=== PATIENT | male | born 1935 | race Caucasian/White ===

== ENCOUNTER 2023-06-04 23:20 | Inpatient (IN) | payer MEDICARE, OTHER, SELFPAY ==
[2023-06-04 18:51] VITALS: BP 182/86
[2023-06-04 21:49] VITALS: BP 149/73
[2023-06-04 22:07] LABS: % Basophils 0.5 % (0-2); % Eosinophils 0.4 % (0-6); % Immature Granulocytes 0.7 % (0-0.5); % Lymphocytes 5.6 % (20.5-51.1); % Neutrophils 86.8 % (42.2-75.2); Absolute Basophils 0.1 10^3/uL (0-0.2); Absolute Eosinophils 0.1 10^3/uL (0-0.7); Absolute Immature Granulocytes 0.1 10^3/uL (0-0.05); Absolute Lymphocytes 1.1 10^3/uL (1.2-3.4); Absolute Monocytes 1.2 10^3/uL (0.1-0.6); Absolute Neutrophils 16.5 10^3/uL (1.4-6.5); Hematocrit 34.1 % (39.0-52.0); Hemoglobin 11.2 g/dL (13.0-18.0); Mean Corp Hgb Conc. 32.8 g/dL (33.0-37.0); Mean Corpuscular Hgb 29.7 pg (27.0-31.0); Mean Corpuscular Volume 90.5 fL (80.0-94.0); Mean Platelet Volume 9.1 fL (7.4-10.4); Nucleated Red Blood Cells % 0 % (-); Platelet Count 200 10^3/uL (130-400); Red Blood Cell Count 3.77 10^6/uL (4.70-6.10); Red Cell Dist. Width 14.5 % (11.5-14.5); White Blood Cell Count 19.1 10^3/uL (4.8-10.8)
[2023-06-04 22:17] LABS: ALT (SGPT) 16 U/L (0-50); AST (SGOT) 24 U/L (17-59); Alkaline Phosphatase 105 U/L (38-126); Blood Urea Nitrogen 26 mg/dl (9-20); Calcium 9.8 mg/dl (8.4-10.2); Carbon Dioxide 21 mmol/L (22-30); Chloride 103 mmol/L (98-107); Glucose 121 mg/dl (70-99); Potassium 4.3 mmol/L (3.5-5.1); Sodium 134 mmol/L (135-145); Total Bilirubin 0.6 mg/dl (0.2-1.3); Total Protein 6.9 g/dl (6.3-8.2); eGFR 58.89
[2023-06-04] MEDS: DILAUDID 0.5 MG IV (22:17)
--- NOTE | 2023-06-04 22:44 | ED.MUSCINJ ---
HPI-Injury
General
Chief Complaint: Fall
Source: patient
Exam Limitations: none
Time Seen by Provider: 06/04/23 20:34
Travel History
Have you had any contact with someone who has COVID-19?: Unable to Answer
Do you have any symptoms of coronavirus? Fever > 100 degrees, chills, cough, shortness of breath, sore throat, loss of taste or smell, muscle aches, or headache?: Unable to Answer
History of Present Illness-Injury
Initial Injury comments:
87-year-old male presents from [facility] after an unwitnessed fall. He has a history of dementia. He was complaining of left hip pain. No other history obtained from the patient given his dementia.
Past History
Past History
ED Past Medical History: Cancer (Prostate), GERD (hiatal hernia), Hypercholesterolemia and Other (OA, vertigo)
ED Past Surgical History: Urological
Social History
Tobacco: Former smoker
Alcohol: None
Drug: None
Personal:
Living: with family
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
Family History
Family History: Other (Dad with a brain aneurysm)
Phy Exam
Physical Exam
Physical Exam:
General: Well-appearing male no acute respiratory distress
HEENT: Normocephalic neck is supple no scalp abrasion or hematoma
Heart: Regular rate and rhythm no murmurs
Lungs: Clear no wheezing or rales
Musculoskeletal exam: No significant deformity to the left leg however passive internal/external rotation of the hip does reproduce hip pain. Spine is nontender. Good range of motion right leg.
Neurologic: No facial asymmetry. Good muscle tone.
Extremities: No cyanosis
Injury Course
Orders/Labs/Results
Orders:
Orders
06/04/23 19:02
CT Head W/o Iv Contrast Urgent
Comment:
Reason For Exam: fall
Hip, Left 2-3 Views [CR Hip - LT w/wo Pel 2-3 Vw*] Urgent
Comment:
Reason For Exam: fall
Include a pelvis x-ray?: Yes
06/04/23 21:48
Complete Blood Count/With Diff Urgent
Comprehensive Metabolic Panel Urgent
06/04/23 21:52
HYDROmorphone [Dilaudid] 0.5 mg IV NOW STA
Abnormal Lab Results
06/04/23
21:48
WBC 19.1 H 10^3/uL
(4.8-10.8)
RBC 3.77 L 10^6/uL
(4.70-6.10)
Hgb 11.2 L g/dL
(13.0-18.0)
Hct 34.1 L %
(39.0-52.0)
MCHC 32.8 L g/dL
(33.0-37.0)
Abs Immat Gran (auto) 0.1 H 10^3/uL
(0-0.05)
Absolute Neuts (auto) 16.5 H 10^3/uL
(1.4-6.5)
Absolute Lymphs (auto) 1.1 L 10^3/uL
(1.2-3.4)
Absolute Monos (auto) 1.2 H 10^3/uL
(0.1-0.6)
Immature Gran % 0.7 H %
(0-0.5)
Neutrophils % 86.8 H %
(42.2-75.2)
Lymphocytes % 5.6 L %
(20.5-51.1)
Sodium 134 L mmol/L
(135-145)
Carbon Dioxide 21 L mmol/L
(22-30)
BUN 26 H mg/dl
(9-20)
Glucose 121 H mg/dl
(70-99)
06/04/23 21:48
06/04/23 21:48
MDM/Problems Addressed
Differential Diagnosis Includes:
Unwitnessed fall left hip pain. Consider fracture versus contusion. Will order CT of head and x-ray of left hip.
*Critical Care Note
Total Time (30-74mins, 75-104mins- exclusive of procedures): Not Applicable
Update Note
Update Note:
I personally visualized x-rays of the left hip and CT of the head. There is severe volume loss in the brain consistent with history of dementia. There is a acute nondisplaced basicervical fracture of the left femur. Will admit to hospital for hip
fracture. Hospitalist and orthopedics made aware
ED Attending Note
-
Portions of this chart may have been created with voice recognition software.� Occasional wrong word or��sound alike� substitutions may have occurred due to the inherent limitations of voice recognition software.
Discharge Plan
Departure
Patient Disposition: Admit
Date of Disposition: 06/04/23
Time of Disposition: 22:47
Admit to: Telemetry
Presentation/result/management discussed w/ accepting MD/DO: Hospitalist
Discharge Problem:
Closed left hip fracture
Prescriptions:
No Action
trazodone 50 MG tablet
50 mg PO HS
donepezil 10 mg Tablet
10 mg PO HS
amlodipine 5 mg Tablet
5 mg PO DAILY Qty: 30 0RF
sennosides-docusate sodium [Senna-S] 8.6-50 mg Tablet
2 tab-cap PO HS
simvastatin 10 mg Tablet
10 mg PO HS
tramadol 50 mg Tablet
25 mg PO DAILY
omeprazole 10 mg Capsule,Delayed Release(Dr/Ec)
10 mg PO DAILY@0630
magnesium hydroxide [Milk of Magnesia] 400 mg/5 mL Suspension
30 ml PO HS PRN (Reason: constipation)
tamsulosin 0.4 mg Capsule
0.4 mg PO QPM
bisacodyl [Dulcolax (bisacodyl)] 10 mg Suppository
10 mg MA DAILY PRN (Reason: q 3 days when no bm & mom is ineffective)
Fleet Enema 19-7 gram/118 mL Enema
118 ml MA DAILY PRN (Reason: if dulcolax is ineffective)
levocetirizine 5 mg Tablet
5 mg PO HS
cholecalciferol (vitamin D3) 250 mcg (10,000 unit) Tablet
250 mcg PO QWEEK
Patient Comments:
06/04/2023: Friday
acetaminophen 325 mg tablet
650 mg PO Q4H PRN (Reason: mild pain/fever>100.4)
lidocaine [Aspercreme (lidocaine)] 4 % adhesive patch,medicated
1 patch topical DAILY
Patient Comments:
06/04/2023: apply to left mid back, remove at 1900
tramadol 50 mg tablet
25 mg PO Q6HPRN PRN (Reason: moderate pain)
Referrals:
Fuentes Mello MD [Family Provider] -
Interventions
Interventions:
*Risk Screen - Suicide Last Done: 06/04/23 18:51
*General Assessment Last Done: 06/04/23 18:51
*Neglect/Abuse Screening Last Done: 06/04/23 18:51
ED- Fall Risk Assessment Last Done: 06/04/23 19:49
*ED COVID-19 Vaccine History Last Done: 06/04/23 18:51
ED-Musculoskeletal Assessment Last Done: 06/04/23 19:47
ED- Neurological Assessment Last Done: 06/04/23 19:47
Discharge Date and Time
Print Language: VENEZUELAN
--- NOTE | 2023-06-04 23:23 | HPS.HSE ---
Family Physician
-
Family Physician: Fuentes Mello
Chief Complaint
-
right rib fractures
History of Present Illness
87-year-old male with past medical history of dementia, hypertension, osteoarthritis, GERD, history of frequent falls with prior right rib fractures presenting from [facility] after unwitnessed fall. He was complaining of left hip pain.
Patient unable to provide much more history. He was able to state his name and birthday only.
Medical History
Past Medical History
Past Medical History: Reports Other (dementia, hypertension, osteoarthritis, GERD, history of frequent falls with prior right rib fractures )
Past Surgical History: Reports None
Social History
Tobacco: Non-smoker
Alcohol: None
Drug: None
Family History
Family History: Not pertinent
Allergies / Home Medications
Allergies reflects when Allergies were last updated in [facility].
Home Medications with original date entered in [facility]
Allergy/Medication List:
Allergies
Allergy/AdvReac Type Severity Reaction Status Date / Time
No Known Allergies Allergy Verified 03/17/20 14:15
Home Medications
trazodone 50 mg tablet 50 mg PO HS Depression 06/24/17
donepezil 10 mg tablet 10 mg PO HS COGNATIVE 03/27/22
amlodipine 5 mg tablet 5 mg PO DAILY #30 tabs 04/03/22
acetaminophen 325 mg tablet 650 mg PO Q4H PRN mild pain/fever>100.4 06/04/23
bisacodyl 10 mg rectal suppository (Dulcolax (bisacodyl)) 10 mg CO DAILY PRN q 3 days when no bm & mom is ineffective 06/04/23
cholecalciferol (vitamin D3) 250 mcg (10,000 unit) tablet 250 mcg PO QWEEK 06/04/23
levocetirizine 5 mg tablet 5 mg PO HS 06/04/23
lidocaine 4 % topical patch (Aspercreme (lidocaine)) 1 patch topical DAILY 06/04/23
magnesium hydroxide 400 mg/5 mL oral suspension (Milk of Magnesia) 30 ml PO HS PRN constipation 06/04/23
omeprazole 10 mg capsule,delayed release 10 mg PO DAILY@0630 06/04/23
sennosides 8.6 mg-docusate sodium 50 mg tablet (Senna-S) 2 tab-cap PO HS 06/04/23
simvastatin 10 mg tablet 10 mg PO HS 06/04/23
sodium phosphates 19 gram-7 gram/118 mL enema (Fleet Enema) 118 ml CO DAILY PRN if dulcolax is ineffective 06/04/23
tamsulosin 0.4 mg capsule 0.4 mg PO QPM 06/04/23
tramadol 50 mg tablet 25 mg PO DAILY 06/04/23
tramadol 50 mg tablet 25 mg PO Q6HPRN PRN moderate pain 06/04/23
Review of Systems
-
History Source: Patient
A 12 point ROS was completed and negative except as noted: Yes
Constitutional: Reports No Symptoms
EENT: Reports No Symptoms
Respiratory: Reports No Symptoms
Cardiac: Reports No Symptoms
Abdomen/GI: Reports No Symptoms
: Reports No Symptoms
Musculoskeletal: Reports No Symptoms
Skin: Reports No Symptoms
Neurological: Reports No Symptoms
Endocrine: Reports No Symptoms
Hematologic/Lymphatic: Reports No Symptoms
Psych: Reports No Symptoms
Physical Exam
Vital Signs
Vital Signs
Temp Pulse Resp BP Pulse Ox
97.8 F 98 24 149/73 94
06/04/23 18:51 06/04/23 23:11 06/04/23 18:51 06/04/23 21:49 06/04/23 23:11
Physical Exam
General: Well Developed, Well Nourished and No Apparent Distress
HEENT: NormoCephalic, Moist mucous membranes and Atraumatic
Respiratory: Clear
Cardiac: S1/S2 and Regular Rhythm; No Murmur or Rub
GI: Soft, Non Tender, Non Distended and Normal Bowel Sounds; No Organomegaly
Rectal: Deferred by Provider
Musculoskeletal: No Clubbing, No Cyanosis and No Edema
Skin: No Rash
Neuro: Nonfocal/grossly intact
Laboratory Results
-
06/04/23 21:48
06/04/23 21:48
Laboratory Results
Total Bilirubin 0.6 mg/dl (0.2-1.3) 06/04/23 21:48
AST 24 U/L (17-59) 06/04/23 21:48
ALT 16 U/L (0-50) 06/04/23 21:48
Alkaline Phosphatase 105 U/L (38-126) 06/04/23 21:48
Data Reviewed
-
Lab Data: Labs Reviewed by me
Old Records: Reviewed
Impression/Plan
-
IMPRESSION:
PLAN:
# Acute nondisplaced basicervical fracture of the left femoral neck
-CT head shows no acute hemorrhage or hematoma
-N.p.o. past midnight
-Ortho consulted
-Tylenol, tramadol for pain
-Minimize further narcotics due to dementia history
-Patient without any cardiac history, although functional status unknown, RCRI risk of 3.9%
#Leukocytosis
-Possible metabolic encephalopathy
-Chronic, and likely reactive
-Check urinalysis
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
-Will need to start aspirin after surgery
Osteoarthritis
-Continue tramadol
History of frequent falls with prior right rib fractures
Dementia
-Continue donepezil
Anxiety/depression
-Hold trazodone for now
GERD
-Continue omeprazole
Essential hypertension
-Continue amlodipine
Hyperlipidemia
Chronic anemia
-Hemoglobin stable
BPH
-Continue tamsulosin
DNR/DNI
DVT prophylaxis�SCDs
N.p.o. past midnight
[2023-06-05] VITALS (19 sets, daily range): BP systolic 96–160; BP diastolic 43–82; BMI 24.5
--- NOTE | 2023-06-05 01:39 | EDRN ---
This RN entered the room to get vital signs on this patient when he started to vomit. Patient turned on his side. Oxygen dropped in the high 60s. Non rebreather applied. Tressa MICHAELS at bedside to assess. Patient not tolerating and pulling the
non rebreather off.
--- NOTE | 2023-06-05 01:58 | RESPNOTE ---
called to bedside, to NTS suction a patient that was thought to have aspirated. pt placed on NRBM to hyperoxygenate, lubed suction cath passed easily through left nare, small amount of watery secretions obtained. Pt remains on 15 lpm NRBM saturation
94%
[2023-06-05] MEDS: ZOFRAN 4 MG IV (02:05)
[2023-06-05] MEDS: MORPHINE SULFATE 2 MG IV (02:06)
[2023-06-05] MEDS: TRANSDERM-SCOP 1 PATCH TRANSDERM (02:10)
[2023-06-05] MEDS: DUONEB 3 ML INH ×2 (02:57→20:34)
--- NOTE | 2023-06-05 03:57 | W.PN.UPDATE ---
Addendum entered and electronically signed by BRANDO Kearns 06/05/23 06:39:
Procal neg, BNP 3260. Lasix IV given. Attempted to update daughter but 'call could not be completed as dialed' x2. He is maintaining on 6 L NC 90-94%.
Addendum entered and electronically signed by BRANDO Kearns 06/05/23 05:56:
Zosyn IV added. Respiratory therapist consulted for possible mid flow/high flow. Procalcitonin and BNP added to labs. He has spiked temp to 102F. Rectal tylenol given.
Original Note:
Update Note
Progress Note Update
Called to patient room after he vomited in semi pollock's position in bed. Nursing immediately turned him on his side. Suctioned well by myself and respiratory therapist. Morphine for tachypnea given. NRB placed. Nebulizer given. CXR and ABG ordered.
Will transfer to IMU when bed available. He is DNR.
[2023-06-05 04:16] LABS: B.E. -2.7 mmol/L; HCO3 21.8 mmol/L (21-28); PCO2 36 mmHg (35-48); pH 7.39 (7.35-7.45)
[2023-06-05 04:17] LABS: PO2 57 mmHg (83-108)
[2023-06-05] MEDS: ZOSYN 50 IV ×3 (05:19→17:24)
[2023-06-05 05:21] LABS: % Basophils 0.3 % (0-2); % Eosinophils 0.3 % (0-6); % Immature Granulocytes 0.9 % (0-0.5); % Lymphocytes 2.1 % (20.5-51.1); % Monocytes 4.9 % (1.7-9.3); % Neutrophils 91.5 % (42.2-75.2); Absolute Basophils 0.1 10^3/uL (0-0.2); Absolute Eosinophils 0.1 10^3/uL (0-0.7); Absolute Immature Granulocytes 0.2 10^3/uL (0-0.05); Absolute Lymphocytes 0.5 10^3/uL (1.2-3.4); Absolute Monocytes 1.1 10^3/uL (0.1-0.6); Absolute Neutrophils 21.1 10^3/uL (1.4-6.5); Hematocrit 35.4 % (39.0-52.0); Hemoglobin 11.7 g/dL (13.0-18.0); Mean Corp Hgb Conc. 33.1 g/dL (33.0-37.0); Mean Corpuscular Hgb 29.5 pg (27.0-31.0); Mean Corpuscular Volume 89.4 fL (80.0-94.0); Mean Platelet Volume 8.5 fL (7.4-10.4); Nucleated Red Blood Cells % 0 % (-); Platelet Count 195 10^3/uL (130-400); Red Blood Cell Count 3.96 10^6/uL (4.70-6.10); Red Cell Dist. Width 14.5 % (11.5-14.5); White Blood Cell Count 23.1 10^3/uL (4.8-10.8)
[2023-06-05] MEDS: TYLENOL/FEVERALL 650 MG RECTAL (05:26)
[2023-06-05 05:48] LABS: ALT (SGPT) 20 U/L (0-50); AST (SGOT) 31 U/L (17-59); Albumin 4.2 g/dl (3.5-5.0); Alkaline Phosphatase 87 U/L (38-126); Blood Urea Nitrogen 29 mg/dl (9-20); Carbon Dioxide 22 mmol/L (22-30); Chloride 102 mmol/L (98-107); Estimated Creatinine Clearance 45 ml/min; Glucose 140 mg/dl (70-99); Potassium 5.1 mmol/L (3.5-5.1); Sodium 138 mmol/L (135-145); Total Bilirubin 1.2 mg/dl (0.2-1.3); Total Protein 7.1 g/dl (6.3-8.2)
--- NOTE | 2023-06-05 05:52 | PTCARENOTE ---
pt is lethargic but oriented to self. CHICKEN RANCH w/ occasional hand tremors. pt has crackles right base, and coarse diminished lung sounds throughout. he is on 6L SpO2=97%. pt left leg shorter then right. weak pedal pulses. pt had a temp of 102- rectal
tylenol administered. is placed on bed alarm.
[2023-06-05 05:53] LABS: Procalcitonin 0.11 ng/ml (0.0-0.25)
[2023-06-05 05:55] LABS: NT-proBNP 3260 pg/ml
[2023-06-05] MEDS: LASIX 40 MG IV (06:42)
--- NOTE | 2023-06-05 07:20 | W.PN.UPDATE ---
Update Note
Progress Note Update
With L Hip Fx
Spoke with daughter who desires surgery for her dad
For surgery later today
GGMD
[2023-06-05] MEDS: ULTRAM PO (08:03)
--- NOTE | 2023-06-05 08:15 | W.PN.HOSP.TC ---
Today's Communication/Plan
-
IV antibiotics. IVF. Trend lactate.
Assessment / Plan
Assessment / Plan
Physical exam:
General: Acutely ill. Toxic appearance
HEENT: Normocephalic, Atraumatic and Moist Mucous Membranes
Respiratory: Right-sided crackles; Negative Wheezes, Rales or Rhonchi
Cardiac: Regular Rhythm and S1/S2
GI: Soft, Nontender and Nondistended
Musculoskeletal: No Clubbing, No Cyanosis and some Edema
Neuro: Awake, Alert and Disoriented
Psych: Calm
A/P:
# Acute nondisplaced basicervical fracture of the left femoral neck
-Orthopedic consulted
-Stat twelve-lead EKG
-Obtain echocardiogram
-Discussed with Ortho and from medical standpoint he is not medically clear for surgery given his current infection and hypoxia (at least from my perspective).
-I updated daughter over the phone as well today.
-Discussed with RN
#Sepsis due to likely aspiration pneumonia
-WBC trending down to 23,000 today
-Stat blood cultures
-Stat lactic acid
-Stat CRP
-Shortly after orders CRP came back 57.6, procalcitonin 1.3, lactate 3.3
-IV antibiotics, Zosyn
-Start IV fluids
#Acute hypoxic respiratory failure. Probably underlying COPD
-Still requires significant amount of oxygen flow down from high flow oxygen to 6 lt of oxygen
-Oxygen supplementation
-Monitor respiratory status
-Seen and reviewed chest x-ray and interpreted by myself consistent with right-sided pneumonia, likely aspiration. Radiology report not available yet.
-Will have speech therapy to evaluate but for now keep him n.p.o.
-Hold off on steroids since no bronchospasm
-Pulmonary consult
#Leukocytosis
-Related to pneumonia
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
-Will need to start aspirin after surgery
Osteoarthritis
-Continue tramadol
History of frequent falls with prior right rib fractures
Dementia
-Continue donepezil
Anxiety/depression
-Hold trazodone for now
GERD
-Continue omeprazole
Essential hypertension
-Continue amlodipine
Hyperlipidemia
Chronic anemia
-Hemoglobin stable
BPH
-Continue tamsulosin
DNR/DNI
DVT prophylaxis�SCDs
Total Critical Care Time 40 minutes. I was immediately available to the patient and staff. I personally examined, reviewed labs, diagnostic images/reports, interpretations, treatment plans, discussed patient care with other providers and family
or caregivers (if patient is unable to make decisions), entered orders as appropriate and documented the medical record.
Anticipated Discharge: > 48 hours
Subjective/Interval History
-
Date of Service: June 05, 2023
Patient hypoxic on 6 L of oxygen. Looks frail.
Objective Data
-
Labs:
Laboratory Results
06/04/23 06/05/23 06/05/23
21:48 04:08 05:08
WBC 19.1 H 23.1 H
Hgb 11.2 L 11.7 L
Hct 34.1 L 35.4 L
Plt Count 200 195
HCO3 21.8
Sodium 134 L 138
Potassium 4.3 5.1
Chloride 103 102
Carbon Dioxide 21 L 22
BUN 26 H 29 H
Creatinine 1.2 1.3
Glucose 121 H 140 H
Calcium 9.8 10.0
Total Bilirubin 0.6 1.2
AST 24 31
ALT 16 20
Alkaline Phosphatase 105 87
Vital Signs:
Vital Signs
Temp Pulse Resp BP Pulse Ox
101.5 F H 87 35 125/69 97
06/05/23 07:23 06/05/23 06:42 06/05/23 05:45 06/05/23 06:42 06/05/23 05:45
I&O
06/04/23 06/05/23 06/06/23
06:59 06:59 06:59
Intake Total 70 / 70
Balance 70 / 70
[2023-06-05] MEDS: ANCEF 10 IV (09:25)
[2023-06-05] MEDS: LIDOCAINE 4% PATCH 1 PATCH TOPICAL (09:25)
--- NOTE | 2023-06-05 09:35 | CM ---
Patient from [facility] with Hx dementia with Dx unwitnessed fall, fracture left hip. Plan OR today.
Spoke with Rickey Sigala, [facility]; the patient was in LTC and on a SD bed hold.
[facility]; the patient resides in their secure memory care unit.
He is A/O x1 with very short memory span, poor safety awareness, impulsive & agitated at times.
The patient is assisted with ADLs, ambulatory using RW & assist of 1. He is considered a high fall risk.
The patient requires setup for feeding and is on a pureed dysphagia diet.
He was not on O2.
He was not receiving PT/OT.
Plan contact patient's daughter prior to discharge.
Plan return to [facility] when medically ready.
--- NOTE | 2023-06-05 10:16 | CON.PUL ---
Addendum entered and electronically signed by Yogi Teran MD 06/05/23 15:18:
Of note, daughter says patient has a history of COPD but is unclear how he was diagnosed. 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 He does not take any inhalers at baseline.
Original Note:
Consultation
Consultation Request
Date/Time Consultation Requested: 06/05/2023839
Date/Time Consultation Performed: 06/05/2023 - 1001
Requesting Provider: Dr. Rao
Performing Provider: Dr. Teran
Reason for Consultation: Preop clearance/acute hypoxia
Medical History
-
Chief Complaint: Fall
History of Present Illness:
87-year-old male with a past medical history of prostate cancer s/p radiation seeds placed, hiatal hernia, GERD, carotid artery disease, chronic sinusitis, and ?COPD who presents from [facility] with a fall. Apparently he fell from standing
position and fell onto his buttocks without loss of consciousness. Initial vitals showed BP 182/86, SpO2 97% on room air, pulse rate 76, respiratory rate 24 and afebrile 97.8 �F. Labs showed leukocytosis to 19.1, anemia to 11.2, mild hyponatremia
134, metabolic acidosis 21, elevated BUN to 26, and urinalysis was negative for signs of UTI. Head CT performed showing no acute intracranial hemorrhage or scalp soft tissue hematoma, and left hip XR showed acute nondisplaced left femoral neck
fracture. Patient given pain medications in the ER with Dilaudid 0.5 mg IVP x1. 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 Zosyn was started and blood cultures x2 were collected. He also had new oxygen requirements and initially
required nonrebreather at 15 L/min which was weaned down to 6 L/min nasal cannula. Orthopedic surgery is planning for surgery and now pulmonary consulted for preoperative clearance as well as additional management/recommendations.
When I saw the patient he was in bed, daughter at bedside and he was on room air breathing comfortably with SpO2 94%. Due to his dementia he is relatively nonverbal, he is able to say his name at baseline but he has been progressively declining as
per daughter. He is currently not in any respiratory distress. Unable to get any additional history from him given his clinical status with dementia.
PMHx: GERD, history of prostate cancer, vertigo, history of colonic polyps, hiatal hernia, hyperlipidemia, chronic sinusitis, ?COPD, Alzheimer's disease, seasonal allergies, carotid artery disease
PSHx: Fundoplasty, hernia repair, interlaminar epidural steroid injections, bilateral knee scopes, prostate radiation seeds placed
Past Medical History
Past Medical History: Other (Above as per HPI)
Past Surgical History: Other (Above as per HPI)
Social History
Tobacco: Former Smoker
Alcohol: None
Drug: None
Family History
Family History: CAD (Father: Heart attack) and Diabetes
Allergies / Home Medications
Allergies
Allergy/AdvReac Type Severity Reaction Status Date / Time
No Known Allergies Allergy Verified 03/17/20 14:15
Home Medications
�Medication �Instructions �Recorded �Confirmed �Last Taken �Type
trazodone 50 mg tablet 50 mg PO HS Depression 06/24/17 06/04/23 06/03/23 20:30 History
donepezil 10 mg tablet 10 mg PO HS COGNATIVE 03/27/22 06/04/23 06/03/23 20:30 History
amlodipine 5 mg tablet 5 mg PO DAILY #30 tabs 04/03/22 06/04/23 06/04/23 08:30 Rx
acetaminophen 325 mg tablet 650 mg PO Q4H PRN mild 06/04/23 06/04/23 Unknown History
pain/fever>100.4
bisacodyl 10 mg rectal suppository 10 mg SD DAILY PRN q 3 days when 06/04/23 06/04/23 Unknown History
(Dulcolax (bisacodyl)) no bm & mom is ineffective
cholecalciferol (vitamin D3) 250 250 mcg PO QWEEK 06/04/23 06/04/23 06/04/23 08:30 History
mcg (10,000 unit) tablet
levocetirizine 5 mg tablet 5 mg PO HS 06/04/23 06/04/23 06/04/23 History
lidocaine 4 % topical patch 1 patch topical DAILY 06/04/23 06/04/23 06/04/23 07:00 History
(Aspercreme (lidocaine))
magnesium hydroxide 400 mg/5 mL 30 ml PO HS PRN constipation 06/04/23 06/04/23 Unknown History
oral suspension (Milk of Magnesia)
omeprazole 10 mg capsule,delayed 10 mg PO DAILY@0630 06/04/23 06/04/23 06/04/23 06:30 History
release
sennosides 8.6 mg-docusate sodium 2 tab-cap PO HS 06/04/23 06/04/23 06/03/23 20:30 History
50 mg tablet (Senna-S)
simvastatin 10 mg tablet 10 mg PO HS 06/04/23 06/04/23 06/03/23 20:30 History
sodium phosphates 19 gram-7 118 ml SD DAILY PRN if dulcolax is 06/04/23 06/04/23 Unknown History
gram/118 mL enema (Fleet Enema) ineffective
tamsulosin 0.4 mg capsule 0.4 mg PO QPM 06/04/23 06/04/23 06/04/23 18:30 History
tramadol 50 mg tablet 25 mg PO DAILY 06/04/23 06/04/23 06/04/23 08:30 History
tramadol 50 mg tablet 25 mg PO Q6HPRN PRN moderate pain 06/04/23 06/04/23 06/03/23 15:45 History
Review of Systems
-
Unable to Obtain full review of systems at this time due to: Dementia
Vitals / Labs / Diagnostic Testing
Vital Signs
Temp Pulse Resp BP Pulse Ox
99.3 F 77 24 112/58 98
06/05/23 11:13 06/05/23 11:55 06/05/23 11:55 06/05/23 11:55 06/05/23 11:55
Lab Data
06/05/23 05:08
06/05/23 05:08
Laboratory Results
06/05/23
04:08
pH 7.39
pCO2 36
pO2 57 L*
HCO3 21.8
O2 Delivery Level
Diagnostic Testing:
Physical Exam
-
HEENT: Normocephalic and Anicteric
Cardiovascular: S1/S2 and Peripheral Edema (negative)
Respiratory: Wheeze (bilaterally), Rales (right base), Rhonchi (negative) and Non-Labored Respirations
GI: Soft, Non Distended and Non Tender
Neurology: Awake and Other (non-communicative)
Skin: Warm and Dry
General: Comfortable and Chills (negative)
Assessment
-
Assessment: 87-year-old male with a past medical history of prostate cancer s/p radiation seeds placed, hiatal hernia, GERD, carotid artery disease, chronic sinusitis, and ?COPD who presents from [facility] with a fall. Apparently he fell
from standing position and fell onto his buttocks without loss of consciousness. Initial vitals showed BP 182/86, SpO2 97% on room air, pulse rate 76, respiratory rate 24 and afebrile 97.8 �F. Labs showed leukocytosis to 19.1, anemia to 11.2, mild
hyponatremia 134, metabolic acidosis 21, elevated BUN to 26, and urinalysis was negative for signs of UTI. Head CT performed showing no acute intracranial hemorrhage or scalp soft tissue hematoma, and left hip XR showed acute nondisplaced left
femoral neck fracture. Patient given pain medications in the ER with Dilaudid 0.5 mg IVP x1. 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 Zosyn was started and blood cultures x2 were collected. He also had new oxygen requirements and
initially required nonrebreather at 15 L/min which was weaned down to 6 L/min nasal cannula. Orthopedic surgery is planning for surgery and now pulmonary consulted for preoperative clearance as well as additional management/recommendations.
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
Impression:
#RLL CAP
#Sepsis due to above without shock
#Acute hypoxia on supplemental oxygen due to sepsis in setting of RLL CAP
#Leukocytosis
#Lactic acidosis
#Fall with left femoral neck fracture
#Anemia (mild) baseline Hb 12-13g/dL
Plan:
- Give 2L of NS 0.9% now given sepsis above
- If patient's lactate level normalizes with stable oxygen requirements, then he would be safe for surgery tomorrow. However, if lactate continues to rise in the setting of right lower lobe pneumonia and sepsis, it would be highly risky to place
this patient under additional stress and anesthesia for an orthopedic procedure.
- Hence, I will trend lactate level again today, continue with supplemental oxygen to maintain SpO2 >90 this 94% and wean as tolerated
- I will update my note with official pulmonary pre-operative risk stratification
- In meantime, continue Zosyn, low threshold to add IV vanco
- Follow up blood cultures; check sputum Cx, check urine antigens for legionella and Strep pneumonia; check MRSA swab
- Incentive spirometer encourage
- Replete electrolytes with K>4, Mg>2
- Maintain euglycemia with goal BG >100 and <180
- Start scheduled nebulized bronchodilators given he is wheezing on exam
- DVT ppx
Pulmonary service will continue to follow along.
Total time spent today was 75 minutes for this encounter. Time includes reviewing laboratory test/imaging results, reviewing pertinent medical records, obtaining and reviewing medical history, performing an appropriate exam, ordering medications,
tests and procedures. Time also includes documentation of this encounter, coordinating patient care and communicating with other healthcare professionals. Total time does not include separately billed tests performed on this date of service.
Data:
CXR 06-05-2023: Mild right basilar pneumonia
Left hip XR 06-04-2023:
1. ACUTE NONDISPLACED BASICERVICAL FRACTURE of the LEFT FEMORAL NECK.
2. Mild bilateral osteoarthritis of the hips.
3. 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
Head CT 06-04-2023:
1. No CT evidence for acute intracranial hemorrhage or scalp soft tissue hematoma.
2. SEVERE BILATERAL TEMPORAL LOBE VOLUME LOSS consistent with a severe chronic neurodegenerative disease (probably ALZHEIMER'S DISEASE).
3. Moderate volume loss in the frontal lobes, parietal lobes, and cerebellum.
4. 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
5. Mild white matter leukoaraiosis in both cerebral hemispheres.
6. Previous functional endoscopic sinus surgery.
[2023-06-05 10:37] LABS: Urine Albumin Negative (Neg - Trace); Urine Bilirubin Negative (Negative); Urine Character Clear (Clear); Urine Color Yellow; Urine Glucose Negative (Negative); Urine Ketone Negative (Negative); Urine Leukocyte Negative (Negative); Urine Nitrite Negative (Negative); Urine Occult Blood 2+ (Negative); Urine Specific Gravity 1.015 (<1.030); Urine Urobilinogen Negative (Neg - 1+)
[2023-06-05 10:40] LABS: Urine White Cell 0-2 /HPF (0-5)
[2023-06-05 10:42] LABS: Lactic Acid 3.3 mmol/L (0.7-2.0)
--- NOTE | 2023-06-05 10:44 | PTCARENOTE ---
Pt received from shift leader. Pt decreased to 3L 02, Pt has hx of COPD, Pt satting 98%, Pt lungs coarse bilaterally.NSR on the monitor. Pt visibly tired. Pt requires 2 RNs to turn, Pt very strong. Pt had episode of urinary incontinence, saturated
bed, Pt provided hygiene, CC# 25 placed on Pt. Pt has decreased skin integrity with scattered scabs/ abrasions covering his arms and legs bilaterally. Pt remains NPO, PO meds not given this AM, per order. Please see nursing shift assessment for
full head to toe.
[2023-06-05] MEDS: NSS 1000 IV ×2 (13:22→15:20)
--- NOTE | 2023-06-05 14:44 | PTCARENOTE ---
Pts daughter at bedside. Pt more arousable this afternoon. Pt opens eyes to verbal stimuli and his holding daughters hand. Pt removed condom cath, new one placed.
[2023-06-05 16:08] LABS: Lactic Acid 3.3 mmol/L (0.7-2.0)
[2023-06-05] MEDS: NSS 500 IV (18:11)
[2023-06-05] MEDS: FLEXBUMIN 100 IV (18:43)
[2023-06-05] MEDS: ARICEPT PO (20:11)
[2023-06-05] MEDS: LIPITOR PO (20:12)
[2023-06-06] VITALS (55 sets, daily range): BP systolic 89–154; BP diastolic 41–95; BMI 24.8
[2023-06-06 00:13] LABS: Lactic Acid 1.7 mmol/L (0.7-2.0)
[2023-06-06] MEDS: ZOSYN 50 IV ×4 (01:14→23:06)
--- NOTE | 2023-06-06 01:26 | PTCARENOTE ---
Received pt at start of shift. nonverbal, opens eyes to tactile stimulation. SR on monitor, remains on RA 90-93%. productive cough, suction required. ivabx. Q2T. No other issues at this time. Will monitor
--- NOTE | 2023-06-06 06:40 | PTCARENOTE ---
pt started waking up more towards the morning and talking in small sentences. lactic stable at 1.7. Placed pt on 2LNC for desating to 87% periodically.
--- NOTE | 2023-06-06 07:25 | W.PN.HOSP.TC ---
Addendum entered and electronically signed by Billy Rao MD 06/06/23 18:06:
OLGA
Addendum entered and electronically signed by Billy Rao MD 06/06/23 18:05:
Sepsis, present on admission.
Addendum entered and electronically signed by Billy Rao MD 06/06/23 15:16:
Patient had marked hypertension and ST changes. Cardiology consulted- discussed with cardio who is seeing patient. Also, updated daughter.
Original Note:
Today's Communication/Plan
-
Plan for hip surgery today. IV antibiotics. Oxygen supplementation.
Assessment / Plan
Assessment / Plan
Physical exam:
General: Acutely ill.
HEENT: Normocephalic, Atraumatic and Moist Mucous Membranes
Respiratory: Right-sided crackles; Negative Wheezes, Rales or Rhonchi
Cardiac: Regular Rhythm and S1/S2
GI: Soft, Nontender and Nondistended
Musculoskeletal: Left lower extremity shortened and externally rotated. No Clubbing, No Cyanosis and some Edema
Neuro: Awake, Alert and Disoriented
Psych: Calm
A/P:
# Acute nondisplaced basicervical fracture of the left femoral neck
-Orthopedic consulted-discussed with Ortho as below
-Reviewed twelve-lead EKG and unremarkable
-Obtained echocardiogram and unremarkable for acute pathology.
-Discussed with Ortho and from medical standpoint he is medically optimized to go for surgery today on 06/05
-I updated daughter over the phone as well today.
-Discussed with RN
#Sepsis due to likely aspiration pneumonia
-WBC trending down to 22.3 today
-Follow up blood cultures
-Lactic acid trended down
-Elevated CRP but will trend in am
-IV antibiotics, Zosyn
-IV fluids as needed
#Acute hypoxic respiratory failure. Probably underlying COPD
-Oxygen down 2-3 Lt
-Oxygen supplementation
-Monitor respiratory status
-Seen and reviewed chest x-ray and interpreted by myself consistent with right-sided pneumonia, likely aspiration. radiology reports same but ?mild.
-Will have speech therapy to evaluate but for now keep him n.p.o.
-Hold off on steroids since no bronchospasm
-Pulmonary consult appreciated
#Leukocytosis
-Related to pneumonia
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
-Will need to start aspirin after surgery
Osteoarthritis
-Continue tramadol
History of frequent falls with prior right rib fractures
Dementia
-Continue donepezil
Anxiety/depression
-Hold trazodone for now
GERD
-Continue omeprazole
Essential hypertension
-Continue amlodipine
Hyperlipidemia
Chronic anemia
-Hemoglobin stable
BPH
-Continue tamsulosin
DNR/DNI
DVT prophylaxis�SCDs
Total time spent on today's encounter was 52 minutes which included time spent in counseling the patient/family regarding diagnosis and treatment plan as listed above, goals of care, and symptom management. Case was discussed with nursing staff,
specialists, and care coordinators/case management. All labs and imaging personally reviewed by me. Remainder the time spent in detailed review of previous records, lab data, imaging, and other medical provider documentation.
Anticipated Discharge: > 48 hours
Subjective/Interval History
-
Date of Service: June 06, 2023
Patient looks better today. On supplemental oxygen at 2 to 3 L. Not much improved from patient.
Objective Data
-
Labs:
Laboratory Results
06/06/23
06:00
WBC Pending
Hgb Pending
Hct Pending
Plt Count Pending
Sodium Pending
Potassium Pending
Chloride Pending
Carbon Dioxide Pending
BUN Pending
Creatinine Pending
Glucose Pending
Calcium Pending
Vital Signs:
Vital Signs
Temp Pulse Resp BP Pulse Ox
98.4 F 76 32 122/73 87
06/06/23 03:00 06/06/23 06:00 06/06/23 06:00 06/06/23 06:00 06/06/23 06:00
I&O
06/05/23 06/06/23 06/07/23
06:59 06:59 06:59
Intake Total 70 / 70
Balance 70 / 70
--- NOTE | 2023-06-06 07:47 | W.PN.UPDATE ---
Update Note
Progress Note Update
OVernight, lactate level improved. He remains on 2L/min albeit still hypoxic. He is at intermediate-high risk for orthopedic procedure given active pneumonia, sepsis and dementia. Maintain SpO2 >90-94%, continue nebs, and would give dose of
steroids pre-op if he goes to OR.
[2023-06-06] MEDS: DUONEB 3 ML INH ×2 (08:26→20:21)
[2023-06-06 09:04] LABS: % Basophils 0.4 % (0-2); % Eosinophils 0.1 % (0-6); % Immature Granulocytes 0.7 % (0-0.5); % Neutrophils 85.8 % (42.2-75.2); Absolute Basophils 0.1 10^3/uL (0-0.2); Absolute Immature Granulocytes 0.2 10^3/uL (0-0.05); Absolute Lymphocytes 1.8 10^3/uL (1.2-3.4); Absolute Monocytes 1.1 10^3/uL (0.1-0.6); Absolute Neutrophils 19.2 10^3/uL (1.4-6.5); Hematocrit 28.9 % (39.0-52.0); Hemoglobin 9.7 g/dL (13.0-18.0); Mean Corp Hgb Conc. 33.6 g/dL (33.0-37.0); Mean Corpuscular Hgb 29.8 pg (27.0-31.0); Mean Corpuscular Volume 88.9 fL (80.0-94.0); Nucleated Red Blood Cells % 0 % (-); Platelet Count 152 10^3/uL (130-400); Red Blood Cell Count 3.25 10^6/uL (4.70-6.10); Red Cell Dist. Width 14.7 % (11.5-14.5); White Blood Cell Count 22.3 10^3/uL (4.8-10.8)
[2023-06-06] MEDS: ULTRAM PO (09:09)
[2023-06-06 09:38] LABS: Blood Urea Nitrogen 35 mg/dl (9-20); Calcium 9.1 mg/dl (8.4-10.2); Carbon Dioxide 23 mmol/L (22-30); Chloride 109 mmol/L (98-107); Estimated Creatinine Clearance 36 ml/min; Glucose 105 mg/dl (70-99); Sodium 136 mmol/L (135-145)
--- NOTE | 2023-06-06 11:05 | W.PN.PUL3 ---
Today's Communication / Plan
-
Antibiotics
Aspiration precautions
Scheduled DuoNebs
Nitro drip as per cardiology
Trend troponin until it peaks
Consider heparin drip considering patient having an NSTEMI if safe in setting of fresh orthopedic procedure
Guarded prognosis
Assessment
-
Assessment: 87-year-old male with a past medical history of prostate cancer s/p radiation seeds placed, hiatal hernia, GERD, carotid artery disease, chronic sinusitis, and ?COPD who presents from [facility] with a fall. Apparently he fell
from standing position and fell onto his buttocks without loss of consciousness. Initial vitals showed BP 182/86, SpO2 97% on room air, pulse rate 76, respiratory rate 24 and afebrile 97.8 �F. Labs showed leukocytosis to 19.1, anemia to 11.2, mild
hyponatremia 134, metabolic acidosis 21, elevated BUN to 26, and urinalysis was negative for signs of UTI. Head CT performed showing no acute intracranial hemorrhage or scalp soft tissue hematoma, and left hip XR showed acute nondisplaced left
femoral neck fracture. Patient given pain medications in the ER with Dilaudid 0.5 mg IVP x1. 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 Zosyn was started and blood cultures x2 were collected. He also had new oxygen requirements and
initially required nonrebreather at 15 L/min which was weaned down to 6 L/min nasal cannula. Orthopedic surgery is planning for surgery and now pulmonary consulted for preoperative clearance as well as additional management/recommendations.
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
Impression:
#RLL CAP
#Sepsis due to above without shock
#NSTEMI
#Acute cardiogenic pulmonary edema due to ACS
#Acute hypoxic respiratory failure on supplemental oxygen due to sepsis in setting of RLL CAP - worsening in setting of NSTEMI with acute cardiogenic pulmonary edema
#Leukocytosis
#Lactic acidosis
#Fall with left femoral neck fracture s/p insertion of left short cephalomedullary nail POD #0
#Anemia (mild) baseline Hb 12-13g/dL
#Suspected COPD but no PFTs/spirometry on file
Plan:
- s/p 2.5L of NS 0.9% on 06/04 given sepsis above with normalization of lactate as of evening of 06/04
- patient is intermediate-high risk for orthopedic procedure --> he developed inferolateral ST depressions with worsening acute hypoxia and cardiogenic pulmonary edema postoperatively
- Cardiology saw patient and nitro drip started --> maintain BP <140/90 and wean off nitro drip as tolerated
- Trend troponin until begins to downtrend
- Replete electrolytes with K>4, Mg>2
- Consider heparin drip considering patient having an NSTEMI if safe in setting of fresh orthopedic procedure
- Continue rectal ASA and once feasible, start high intensity statin
- Continue Zosyn
- Follow up blood cultures; check sputum Cx if possible; urine antigens for legionella and Strep pneumonia also both negative; MRSA swab negative
- Incentive spirometer encouraged, however with patient's dementia I do not think that this is possible
- Continue with supplemental oxygen and maintain SpO2 >90-94%
- Considering patient continues to wheeze, continue scheduled nebulized bronchodilators
- Maintain euglycemia with goal BG >100 and <180
- DVT ppx
- Guarded prognosis
- Pulmonary service will continue to follow along
Total time spent today was 50 minutes for this encounter. Time includes reviewing laboratory test/imaging results, reviewing pertinent medical records, obtaining and reviewing medical history, performing an appropriate exam, ordering medications,
tests and procedures. Time also includes documentation of this encounter, coordinating patient care and communicating with other healthcare professionals. Total time does not include separately billed tests performed on this date of service.
Data:
CXR 06-05-2023: Mild right basilar pneumonia
CXR 06-05-2022: Interval worsening of patchy bilateral airspace disease, as above, suspicious for multifocal pneumonia.
Left hip XR 06-04-2023:
1. ACUTE NONDISPLACED BASICERVICAL FRACTURE of the LEFT FEMORAL NECK.
2. Mild bilateral osteoarthritis of the hips.
3. 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
Head CT 06-04-2023:
1. No CT evidence for acute intracranial hemorrhage or scalp soft tissue hematoma.
2. SEVERE BILATERAL TEMPORAL LOBE VOLUME LOSS consistent with a severe chronic neurodegenerative disease (probably ALZHEIMER'S DISEASE).
3. Moderate volume loss in the frontal lobes, parietal lobes, and cerebellum.
4. 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
5. Mild white matter leukoaraiosis in both cerebral hemispheres.
6. Previous functional endoscopic sinus surgery.
Subjective Data
-
Date of Service:
Date of Service: June 06, 2023
Chief Complaint: Pulmonary Follow Up
Subjective:
Went for orthopedic procedure today. Was on room air this morning. Postoperatively developed inferolateral ST depressions. Also, patient's oxygen requirements increased. Nitroglycerin drip started and patient transferred back to IMU for further
care. Troponin level also checked and is 1.1. I saw patient when he came back to IMU. He was on 6 L/min via facemask. Occasionally moaning but not following commands. He is in no acute distress.
Review of Systems
General: Other (Unable to obtain due to patient's acute clinical status/dementia)
Objective Data
Data Reviewed
Vital Signs / I&O / Oxygen:
Vital Signs
Temp Pulse Resp BP Pulse Ox
98.1 F 76 32 122/73 87
06/06/23 07:00 06/06/23 06:00 06/06/23 06:00 06/06/23 06:00 06/06/23 06:00
Intake and Output
06/05/23 06/06/23 06/07/23
06:59 06:59 06:59
Intake Total 70 / 70
Balance 70 / 70
SaO2 87
Nasal Cannula flow liters per 2
minute
Physical Exam
General: Respiratory Distress (negative) and Comfortable
HEENT: Normocephalic and Anicteric
Cardiovascular: S1-S2 and Peripheral Edema (negative)
Respiratory: Wheeze ([place] bilaterally), Crackles (Right base), Rhonchi (negative) and Non-Labored Respirations
GI: Soft, Non Distended and Non Tender
Neurology: Awake, Tremors (negative) and Non Verbal
Skin: Warm and Dry
Labs/Micro/Reports
Lab Data
06/06/23 08:47
06/06/23 08:47
Microbiology
06/05/23 10:10 Blood/Venous Blood Culture - Preliminary
No Growth in 24 hours- Final report to follow
06/05/23 10:10 Blood/Venous Blood Culture - Preliminary
No Growth in 24 hours- Final report to follow
06/05/23 07:33 Nose MRSA Screen - Final
No Methicillin Resistant Staphylococcus aureus isolated.
06/05/23 13:25 Urine Legionella Urinary Antigen - Final
Negative for Legionella pneumophila Serogroup 1 antigen.
A negative result does not rule out the possiblity of
Legionella infection due to other serogroups or species of
Legionella. Clinical correlation is recommended.
06/05/23 13:25 Urine Streptococcus pneumoniae Antigen (M - Final
Negative for Streptococcus pneumoniae antigen.
A negative result does not exclude infection with
Streptococcus pneumoniae. Clinical correlation is
recommended.
[2023-06-06] MEDS: LIDOCAINE 4% PATCH TOPICAL (11:55)
--- NOTE | 2023-06-06 12:01 | W.PN.UPDATE ---
Update Note
Progress Note Update
Reviewed chart and examined patient's. Patient with history of dementia poor story and unable to elicit any clinical history from patient. On chart review, patient sustained a fall subsequently diagnosed with nondisplaced left hip fracture. He
was admitted to the hospital service and orthopedics was consulted. Surgery was delayed as patient did have some pulmonary compromise from presumed community acquired pneumonia. He seen by pulmonary team and has subsequently been cleared by the
primary team. I did discuss this earlier today with them and they were in agreement with proceeding with surgery.
Examination
Musculoskeletal left lower extremity
Skin intact, no erythema, no ecchymotic staining
Palpation of left groin and lateral trochanteric flare does elicit painful grimace from patient
Extremity slightly externally rotated without significant shortening
Patient unable to comply with detailed motor or sensory examination
Distal extremity is warm and pink
No other areas of bony palpable crepitation of long bones or joints on tertiary examination
Radiographs reviewed. These show essentially nondisplaced left basicervical femoral neck fracture. There is some extension superiorly through the transcervical region of the femoral neck.
Assessment plan
87-year-old male history of dementia status post fall with essentially nondisplaced left basicervical femoral neck fracture. I did call and speak with the patient's daughter who is his medical power of admitted attorneys and discussed at length patient's
diagnosis and treatment options. She was in favor proceeding with surgical intervention. We discussed variety of procedures including both arthroplasty and fixation options. After discussion, we mutually agreed to proceed with insertion of left
hip cephalomedullary nail fixation. Do think this is reasonable particularly given patient's medical comorbidities and patient's daughter's desire for least invasive surgery. We discussed risks benefits and alternatives to surgery. Discussed the
usual expected perioperative and postoperative course. No guarantees were given. Patient has been cleared by pulmonary service as well as medical service as an intermediate to high risk surgical patient.
Nonweightbearing left lower extremity
PT OT deferred to postoperative setting
DVT prophylaxis: Hold in preparation for OR
N.p.o.
Medical management per primary/pulmonary service
Plan: 2 OR today for insertion of left hip nail
[2023-06-06] MEDS: ZOSYN IV (12:59)
[2023-06-06] MEDS: DUONEB INH (13:07)
--- NOTE | 2023-06-06 14:04 | OR.RPT ---
Operative Report
Operative Report
Anesthesia Type:
General
Operative Indications:
Left hip fracture
Operative Findings :
Basicervical left femoral neck fracture with extension transcervical region of cephalad femoral neck
Complications:
None
Implants:
11 mm x 125 degree short gamma nail, 100 mm cephalomedullary screw, 40 mm x 5 mm distal interlocking screw
Procedure and Technique:
Insertion left short cephalomedullary nail
INDICATIONS FOR PROCEDURE:
87-year-old male history of dementia status post fall presented to the emergency department with left hip pain and inability to bear weight. He was admitted to the hospital service after being diagnosed with a left hip fracture. Orthopedics is
consulted for further evaluation and treatment of left fracture. During his hospitalization there was concern for aspiration pneumonia and he did have respiratory compromise and this did delay his surgery. He was cleared by pulmonary service for
surgery. Patient with significant dementia and unable to obtain history. Discussed case with his daughter who is his medical power of ip technology transactions attorney. We discussed treatment options both surgical and nonsurgical. Discussed both fixation and
arthroplasty options. After discussion, we mutually agreed to proceed with cephalomedullary nail fixation of left hip fracture. We discussed risks benefits and alternatives to surgery. We discussed the usual expected perioperative postoperative
course. No guarantees were given. After discussion, verbal consent was obtained over the telephone.
OPERATIVE PROCEDURE:
Patient was seen and identified in the preoperative holding area. Operative extremity was marked. Patient was taken to the operating room and provided anesthesia by the anesthesia team. Placed supine on fracture table. Nonoperative extremity was
placed in a scissored position and padded with a gel pad to the contralateral post of the fracture table. Operative extremity was placed in a well-padded fracture boot. Biplanar fluoroscopy confirmed appropriate reduction after axial traction,
adduction and slight internal rotation of the fracture. Operative extremity was then prepped and draped in normal sterile fashion. Timeout was performed again identifying the operative extremity correctly. Preoperative antibiotics were addressed.
Approximately 5 cm incision was made 2 fingerbreadths proximal to the greater trochanter. Sharp dissection was carried through skin and subcutaneous tissues deep fascial layers. Guidepin was then inserted under plantar fluoroscopic guidance
through the greater trochanter in accordance with the implants operative technique. This was inserted to a depth just distal to the lesser trochanter. Proximal opening reamer was then utilized. A 11 millimeter X 135 degree short cephalomedullary
nail was then inserted to the appropriate depth. Trocar was then inserted through the aiming arm. Sharp dissection was then carried through skin and subcutaneous tissues as well as deep fascial layers. Guidewire was inserted through the trocar
into the femoral neck and head. Appropriate position was confirmed under biplanar fluoroscopy. Attention was made to minimize the tip apex distance. Measurements were obtained for the cephalomedullary screw. Cannulated drill was then drilled to
the appropriate depth followed by the insertion of cannulated cephalomedullary screw. Appropriate final position of the screw within the confines of the femoral neck and head were confirmed again on biplanar fluoroscopy. Setscrew was deployed.
Additional trocar was then inserted through the aiming arm for the distal interlocking screw. Sharp dissection was carried through skin, subcutaneous tissues and deep fascial layers. Appropriate length interlocking screw was then drilled and
inserted. Final appropriate positioning was confirmed again on biplanar fluoroscopy. Satisfied with the extent of surgery, wounds were copiously irrigated with normal saline solution and closed in a layered fashion utilizing 0 Vicryl for deep
fascial layer, 2-0 Vicryl for subcu cutaneous layer and deepak for skin. Aquacel dressings were applied. Anesthesia was reversed and patient was taken to the operating room in stable condition. Postoperative plans include weightbearing the
patient's tolerance operative extremity. Will recommend 28 days DVT prophylaxis consisting of renally based Lovenox for 28 days. Plan to follow-up in the office in 2 to 3 weeks for repeat evaluation with planned removal of deepak
Disposition:
PACU
[2023-06-06] MEDS: NITROGLYCERIN PREMIX 250 IV (15:03)
[2023-06-06] MEDS: XOPENEX 0.63 MG INHALANT SOLUTION INH (15:06)
[2023-06-06] MEDS: ASPIRIN 300 MG RECTAL (15:23)
--- NOTE | 2023-06-06 15:23 | PTOTSP ---
MUSIC PUBLISHER Note
Patient s/p OR today for L hip fx repair. New orders required to continue therapy after general anesthesia. Please place as able.
--- NOTE | 2023-06-06 15:32 | CM ---
Patient from [facility] with Hx dementia with Dx unwitnessed fall, fracture left hip, Sepsis due to likely aspiration pneumonia. OR today for L hip fx repair - Insertion left short cephalomedullary nail. PT & OT Evals pending.
Phone call to Zakiya, Rickey, [facility]; left message with clinical update with request for ph for report/fax for patient's return when medically ready.
Spoke with patient's daughter ETHAN Snyder; daughter says she was given update from web development instructor on her father's condition post op. She agrees with the patient returning to [facility] at discharge.
Plan follow up after PT/OT Evals.
Plan return to [facility] when medically ready.
--- NOTE | 2023-06-06 15:33 | PN.CDI ---
CDI
- -
CDI:
Physician Documentation Request
Admit Date: 06/04/23 23:20
Dear Doctor Jalen,
Clinical Indicators:
Patient admitted with acute fracture of left femoral neck.
Sepsis due to aspiration pna also present.
Cr/GFR trend:
06/04/23 06/05/23 06/06/23
21:48 05:08 08:47
Creatinine 1.2 1.3 1.6 H
eGFR 58.89 53.50 41.70
Please clarify which of the following accurately represents the patient's renal status:
OLGA
Rise in creatinine only
Other, please specify
Criteria for OLGA*
1 Increase in serum creatinine by > or = to 0.3 mg/dL (> or = to 26.5 micromol/L) within 48 hours, OR
2 Increase in serum creatinine to > or = to 1.5 times baseline, which is known or presumed to have occurred within 7 days, OR
3 Urine volume < 0.5 nL/kg/hour for six hours
Use of terms such as suspected, likely, concern for, or probable (associated with a specific diagnosis that is being evaluated, monitored, or treated as if it exists) are acceptable and can be coded in the inpatient setting, when documented at the
time of discharge.
Thank you,
ROYAL Lehman RN
CDI Specialist
available via tiger text
Please use your independent medical judgment in providing your response.
*Source: Kidney Disease: Improving Global Outcomes (KDIGO) 2012
--- NOTE | 2023-06-06 15:41 | CON.CAR ---
Consultation
Consultation Request
Date/Time Consultation Requested: 06/06/23 14:25
Date/Time Consultation Performed: 06/06/23 14:30
Requesting Provider: Dr. Fenton
Performing Provider: BRANDO Reveles for Dr. Jung
Reason for Consultation: Abnormal EKG
Medical History
-
Chief Complaint: Fall
History of Present Illness:
Rufus Morel is an 87-year-old male with hypertension, dyslipidemia, and significant dementia who presented after a fall. He endorsed left hip pain. He was found to have a fracture. A few hours after his admission he had an episode of vomiting.
There was concern for aspiration. He had an elevated lactate which has normalized. CRP and procalcitonin were also elevated. He went to the OR today for gamma nail by orthopedic surgery. He had telemetry changes at the end of the case and an EKG
was performed. He has anterolateral ST changes. Cardiology was asked to consult. He is unable to participate in this HPI and ROS due to his significant dementia. On exam he is tachypneic, hypoxic, and tachycardic. He has expiratory wheezing.
Past Medical History
Past Medical History: CVA, HTN and Other (Dementia)
Social History
Tobacco: Non-Smoker
Alcohol: None
Drug: None
Living: Senior [facility]
Family History
Family History: Unable to Obtain
Allergies / Home Medications
Allergy/AdvReac Type Severity Reaction Status Date / Time
No Known Allergies Allergy Verified 03/17/20 14:15
�Medication �Instructions �Recorded �Confirmed �Type
trazodone 50 mg tablet 50 mg PO HS Depression 06/24/17 06/04/23 History
donepezil 10 mg tablet 10 mg PO HS COGNATIVE 03/27/22 06/04/23 History
amlodipine 5 mg tablet 5 mg PO DAILY #30 tabs 04/03/22 06/04/23 Rx
acetaminophen 325 mg tablet 650 mg PO Q4H PRN mild 06/04/23 06/04/23 History
pain/fever>100.4
bisacodyl 10 mg rectal suppository 10 mg AK DAILY PRN q 3 days when 06/04/23 06/04/23 History
(Dulcolax (bisacodyl)) no bm & mom is ineffective
cholecalciferol (vitamin D3) 250 250 mcg PO QWEEK 06/04/23 06/04/23 History
mcg (10,000 unit) tablet
levocetirizine 5 mg tablet 5 mg PO HS 06/04/23 06/04/23 History
lidocaine 4 % topical patch 1 patch topical DAILY 06/04/23 06/04/23 History
(Aspercreme (lidocaine))
magnesium hydroxide 400 mg/5 mL 30 ml PO HS PRN constipation 06/04/23 06/04/23 History
oral suspension (Milk of Magnesia)
omeprazole 10 mg capsule,delayed 10 mg PO DAILY@0630 06/04/23 06/04/23 History
release
sennosides 8.6 mg-docusate sodium 2 tab-cap PO HS 06/04/23 06/04/23 History
50 mg tablet (Senna-S)
simvastatin 10 mg tablet 10 mg PO HS 06/04/23 06/04/23 History
sodium phosphates 19 gram-7 118 ml AK DAILY PRN if dulcolax is 06/04/23 06/04/23 History
gram/118 mL enema (Fleet Enema) ineffective
tamsulosin 0.4 mg capsule 0.4 mg PO QPM 06/04/23 06/04/23 History
tramadol 50 mg tablet 25 mg PO DAILY 06/04/23 06/04/23 History
tramadol 50 mg tablet 25 mg PO Q6HPRN PRN moderate pain 06/04/23 06/04/23 History
Review of Systems
-
Unable to obtain full review of systems at this time due to: Dementia
Physical Exam
Vital Signs
Temp Pulse Resp BP Pulse Ox
98.1 F 118 30 138/76 94
06/06/23 14:15 06/06/23 15:07 06/06/23 15:07 06/06/23 12:00 06/06/23 14:45
Lab Results
06/06/23 08:47
Xwa-X-Kkwciyhqset Pept 3260 pg/ml 06/05/23 05:08
Physical Exam
General: Other (Restless)
HEENT: Normocephalic, Anicteric and Moist Mucous Membranes
Respiratory: Accessory Resp Muscle Use and Other (tachypnea)
Cardiac: S1/S2 and Regular Rhythm
Breast: Deferred by me
GI: Soft, Non Tender, Non Distended and Normal Bowel Sounds
Rectal: Deferred by Provider
Genito-urinary: No Costovertebral Tender
Musculoskeletal: No Clubbing, No Cyanosis and No Edema
Skin: Warm and Dry
Hematologic/Lymphatic: No Lymphadenopathy
Psych: Other (Restless)
Impression / Plan
-
Abnormal EKG, anterolateral changes
-ASA AK, avoiding BB given wheezing, he did get esmolol during case
-Nitro gtt
-CXR, he may need furosemide
-Echo yesterday without acute findings
Sepsis, in the setting of aspiration PNA
-Tachypnea with expiratory wheeze, Xopenex neb x 1 now
-Lactate normalized yesterday
-Antibiotics per primary
Fall with acute nondisplaced basicervical fracture of the left femoral neck S/P insertion left short cephalomedullary nail (Dr. Card, 06/06/23)
Dementia, significant
Data Reviewed
-
EKG: Report Reviewed by me (Sinus tachycardia, lateral subendocardial injury, rate 121)
Medical Tests (Nuc Med, Echo etc): Report Reviewed by me (Echo as above)
Labs: Labs Reviewed by me
Old Records: Reviewed
--- NOTE | 2023-06-06 15:44 | PN.CDI ---
CDI
- -
CDI:
Physician Documentation Request
Admit Date: 06/04/23 23:20
Dear Doctor Jalen,
Clinical Indicators:
Patient admitted with acute fracture of left femoral neck.
06/03 H & P, 'Leukocytosis...Chronic, and likely reactive...'
06/04 PN, 'Sepsis due to likely aspiration pneumonia'
WBC trend on admission:
06/04/23 06/05/23
21:48 05:08
WBC 19.1 H 23.1 H
Temp trend:
06/04/23
18:51 06/05/23
01:26 06/05/23
05:03
Temp 97.8 F 99.6 F 102.0 F H
HR/RR trend:
06/04/23
18:51 06/04/23
21:49 06/04/23
23:11
Pulse 76 96 98
Resp Rate 24
06/05/23
02:00 06/05/23
03:00 06/05/23
04:00
Pulse 96 97 112
Resp Rate 36 35 33
Please clarify the following:
Sepsis was present on admission
Sepsis was not present on admission
Unable to determine
Use of terms such as suspected, likely, concern for, or probable (associated with a specific diagnosis that is being evaluated, monitored, or treated as if it exists) are acceptable and can be coded in the inpatient setting, when documented at the
time of discharge.
Thank you,
ROYAL Lehman RN
CDI Specialist
available via tiger text
Please use your independent medical judgment in providing your response.
[2023-06-06] MEDS: LASIX 40 MG IV (15:52)
[2023-06-06 15:56] LABS: Hematocrit 31.3 % (39.0-52.0); Hemoglobin 10.5 g/dL (13.0-18.0); Mean Corp Hgb Conc. 33.5 g/dL (33.0-37.0); Mean Corpuscular Hgb 30.1 pg (27.0-31.0); Mean Corpuscular Volume 89.7 fL (80.0-94.0); Mean Platelet Volume 9.1 fL (7.4-10.4); Platelet Count 184 10^3/uL (130-400); Red Blood Cell Count 3.49 10^6/uL (4.70-6.10); White Blood Cell Count 27.6 10^3/uL (4.8-10.8)
--- NOTE | 2023-06-06 16:30 | PTCARENOTE ---
Patient was confused this morning preop, kept NPO for OR. Patients family member spoke to surgeon. Report provided to OR nurse, preop checklist completed, chg bath as per protocol. Patient is in OR at this time.
--- NOTE | 2023-06-06 17:49 | PTCARENOTE ---
Patient arrived back to room from PACU with dressing intact on left hip. No bleeding at surgical site. Patient has a nonproductive cough, on 6 liters oxygen via nasal cannula at this time. Nitro drip at 5mcg infusing, map 90 at this time. Patient
has eyes closed. nonverbal pain scaled used.
[2023-06-06] MEDS: ANCEF 5 IV (19:19)
[2023-06-06] MEDS: COLACE PO (19:20)
--- NOTE | 2023-06-06 20:04 | PTCARENOTE ---
Pt received resting in bed. AAOX2. Able to state name and date. Forgetful, confused, [place], can be uncooperative. Denies CP or left hip pain. Neurovascular checks to left LE as documented. Left hip dressing c/d/i. Nitro gtt infusing at 5mcq/min.
MAPs 80's. Afebrile. SR/SA on CM. OMAYRA/SMITH/slight EW noted. Occasional moist automatic washer mechanic cough. Continues on 6L NC POX 97%. +BS round abdomen. Missy cath in placed draining yellow urine. Whole body scabs noted as documented. Slight itch noted. Knee high
scd's on and working. Unable to give PO meds. Pt NPO till seen by speech. Rest of assessment as documented. Maintained on Q2hr turns. Call smith remains at bedside. Will continue to monitor.
[2023-06-06] MEDS: LIPITOR PO (21:23)
[2023-06-06] MEDS: ARICEPT PO (21:23)
--- NOTE | 2023-06-06 22:00 | PTCARENOTE ---
Pt attempting oob. Pulled off one aquacell dressing to left lateral leg placed in OR today. Pt attempted to hit this RN. Also when he grabs those around him with his hands he squeezes tightly trying to break fingers. Shanice MICHAELS TT'd and order
entered for soft limb wrist restraints/side rails. Will continue to monitor.
--- NOTE | 2023-06-06 22:40 | PTCARENOTE ---
Critical troponin resulted 14.600 up from earlier result of 1.100. BP 115/63 HR 103 RR 28 POX 98% on 6L NC. Nitro gtt at 5mcq/min. Mild exp wheeze noted. Pt is confused and forgetful but states 'no' when asked if having any CP. Shanice CHING'd
and made aware. At the same time Dr Erich CHING'd and made aware of above. Dr Jung called floor and spoke to this RN. Dr Jung requested earlier EKG obtained be sent to him and another RN sent EKG as requested. Another call received from "Aaliyah"Erich stating the EKG looks much better than the earlier one. Would like another troponin in am which he stated would most likely be high also. States he wants pt to continue on Nitro gtt throughout the night. Shanice CHING'd made aware of this
RN's conversation with Dr Jung and order entered for Troponin in am. Per Dr Jung if pt's respiratory status worsens pt would most likely require additional dose of lasix.
[2023-06-06] MEDS: FLUSH (NSS) 2 FLUSH IV (23:07)
[2023-06-07] VITALS (80 sets, daily range): BP systolic 87–154; BP diastolic 41–102; PULSE 85–128; BMI 24.2
[2023-06-07] MEDS: FLUSH (NSS) 2 FLUSH IV ×4 (03:51→19:04)
[2023-06-07] MEDS: ANCEF 5 IV (03:51)
[2023-06-07 04:22] LABS: % Basophils 0.1 % (0-2); % Lymphocytes 3.2 % (20.5-51.1); % Monocytes 6.1 % (1.7-9.3); % Neutrophils 89.6 % (42.2-75.2); Absolute Immature Granulocytes 0.2 10^3/uL (0-0.05); Absolute Lymphocytes 0.6 10^3/uL (1.2-3.4); Absolute Monocytes 1.2 10^3/uL (0.1-0.6); Absolute Neutrophils 17.8 10^3/uL (1.4-6.5); Hematocrit 25.4 % (39.0-52.0); Hemoglobin 8.6 g/dL (13.0-18.0); Mean Corp Hgb Conc. 33.9 g/dL (33.0-37.0); Mean Corpuscular Hgb 30.1 pg (27.0-31.0); Mean Corpuscular Volume 88.8 fL (80.0-94.0); Mean Platelet Volume 9.4 fL (7.4-10.4); Nucleated Red Blood Cells % 0 % (-); Platelet Count 161 10^3/uL (130-400); Red Blood Cell Count 2.86 10^6/uL (4.70-6.10); Red Cell Dist. Width 14.7 % (11.5-14.5); White Blood Cell Count 19.8 10^3/uL (4.8-10.8)
[2023-06-07 04:52] LABS: Blood Urea Nitrogen 43 mg/dl (9-20); Calcium 9.1 mg/dl (8.4-10.2); Carbon Dioxide 23 mmol/L (22-30); Chloride 109 mmol/L (98-107); Estimated Creatinine Clearance 36 ml/min; Glucose 114 mg/dl (70-99); Potassium 3.7 mmol/L (3.5-5.1); Sodium 140 mmol/L (135-145)
[2023-06-07] MEDS: ZOSYN 50 IV ×4 (05:35→22:54)
[2023-06-07] MEDS: MORPHINE SULFATE 2 MG IV ×2 (06:44→19:04)
--- NOTE | 2023-06-07 06:51 | W.PN.CD ---
Today's Communication / Plan
-
NSTMI
- post op in PACU patient with diffuse ST depression in setting of resp insufficiency and tacycardia
- ECG changes resolved last night and ECG remains stable
- peak troponin 25 at this point
- drop in HB to 8.6 and patietn immediately post op - heparin not added
- Continue ASA
- statin
- BB not given yesterday due to weeking and resp distress. Would use low dose BB today if Ok with primary team and pulmonary
- continue nitrates change from IV to nitropaste
- pain control
- echo friday
Impression / Plan
-
NSTMI
- post op in PACU patient with diffuse ST depression in setting of resp insufficiency and tacycardia
- ECG changes resolved last night and ECG remains stable
- peak troponin 25 at this point
- drop in HB to 8.6 and patietn immediately post op - heparin not added
- Continue ASA
- statin
- add BB if resp issue sallow . Held due to marked wheezing yesterday
- continue nitrates
- echo friday
resp insufficnecy -patient noted to have pneumonia suspected to have component of heart failure when in PACU so was given Lasix. Chest x-ray with worsening patchy infiltrates and suspected multifocal pneumonia. Patient at risk for aspiration.
-Wean O2 as tolerated
-Treatment of pneumonia as directed by primary team and technical architect
-With creatinine up to 1.6 would hold off on additional diuretic right now.
Pneumonia. Treatment directed by primary team and hospitalist.
Fall with acute nondisplaced basicervical fracture of the left femoral neck S/P insertion left short cephalomedullary nail (Dr. Card, 06/06/23)
Dementia, significant
Physical Exam
Vital Signs/Labs
Vital Signs
Temp Pulse Resp BP Pulse Ox
98.4 F 84 26 132/68 97
06/07/23 03:04 06/07/23 06:15 06/07/23 06:15 06/07/23 06:15 06/07/23 06:15
06/05/23 06/06/23 06/07/23
06:59 06:59 06:59
Actual Weight 82.1 kg 83.2 kg 81.1 kg
06/07/23 04:09
06/07/23 04:09
Magnesium 2.0 mg/dl (1.6-2.3) 06/06/23 08:47
06/05/23
05:08
Lor-M-Ytjmbmiyzgn Pept 3260
LAB Results
06/06/23 06/06/23 06/07/23
15:39 21:24 04:09
Troponin I 1.100 H* 14.600 H* D 21.300 H* D
Physical Exam
Constitutional: No acute distress and Other (appears comfortable)
Cardiovascular: Rhythm & rate is regular
Respiratory: Other (transmitted upper airway sounds and no wheeze)
GI: Soft
Neuro/Psych: Alert
Data Reviewed
-
Date of Service: June 07, 2023
Medical Decision Making: Reviewed Test Results
Echo: Report Reviewed by me
X-Ray/CT/US/MRI/NUC/PET: Report Reviewed by me and Other (Imaging chest x-ray reviewed)
Medical Tests (PFT, Pathology etc): Report Reviewed by me
Labs: Labs Reviewed by me
[2023-06-07] MEDS: DUONEB 3 ML INH ×3 (07:59→19:38)
[2023-06-07] MEDS: NORVASC 2.5 MG PO (08:35)
[2023-06-07] MEDS: COLACE 100 MG PO (08:35)
[2023-06-07] MEDS: ULTRAM 25 MG PO (08:36)
[2023-06-07] MEDS: LIDOCAINE 4% PATCH 1 PATCH TOPICAL (08:38)
[2023-06-07] MEDS: LOVENOX 40 MG SC (08:38)
--- NOTE | 2023-06-07 09:29 | W.PN.HOSP.TC ---
Today's Communication/Plan
-
see bold
Assessment / Plan
Assessment / Plan
Gen: NAD, Awake and alert
Eyes: EOMI, PERRLA, no scleral icterus.
Neck: supple.
CV: RRR, +S1/S2, no m/r/g.
Resp: CTAB anteriorly, no rales, wheezes, or rhonchi.
Abd: +BS, soft, NT, ND
Skin: No rashes.
Neuro: CN 2-12 intact, non-focal.
Psych: flat affect.
06/05/23 10:10 Blood/Venous Blood Culture - Preliminary
No Growth in 24 hours- Final report to follow
06/05/23 10:10 Blood/Venous Blood Culture - Preliminary
No Growth in 24 hours- Final report to follow
06/05/23 07:33 Nose MRSA Screen - Final
No Methicillin Resistant Staphylococcus aureus isolated.
06/05/23 13:25 Urine Legionella Urinary Antigen - Final
Negative for Legionella pneumophila Serogroup 1 antigen.
A negative result does not rule out the possiblity of
Legionella infection due to other serogroups or species of
Legionella. Clinical correlation is recommended.
06/05/23 13:25 Urine Streptococcus pneumoniae Antigen (M - Final
Negative for Streptococcus pneumoniae antigen.
A negative result does not exclude infection with
Streptococcus pneumoniae. Clinical correlation is
recommended.
CXR 06/06/23: Interval worsening of patchy bilateral airspace disease, as above, suspicious for multifocal pneumonia.
Acute nondisplaced basicervical fracture of the left femoral neck:
-s/p ORIF, Insertion left short cephalomedullary nail, on 06/06/23
-Orthopedics following, post-op care as per ortho
Sepsis due to aspiration pneumonia:
-Leukocytosis improving, 19.8 today
-BCxs NGTD
-lactic acidosis has resolved
-cont Zosyn
-speech following
Acute hypoxic respiratory failure:
-Due to aspiration pneumonia and likely underlying COPD
-currently on 2L NC O2
-NPO for now until speech sees again
NSTEMI:
-Patient had diffuse ST depressions in the PACU after surgery. This was in the setting of respiratory failure and tachycardia. ST depressions have since resolved.
-trop worsening, now 21.3
-BB was not started with resp failure, ok to start now (lopressor 12.5mg PO BID)
-echo 06/09/23
-cont NTG gtt
-start ASA 81
-no heparin with post-op acute blood loss anemia
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
Osteoarthritis
h/o frequent falls with prior right rib fractures
Dementia: Continue donepezil
Anxiety/depression
GERD: Continue PPI
Essential hypertension: Continue amlodipine
Hyperlipidemia: cont statin
Chronic anemia, currently with acute blood loss anemia
BPH: Continue tamsulosin
DNR/DNI
DVT prophylaxis�SCDs
Total time spent on today's encounter was 50 minutes which included time spent in counseling the patient/family regarding diagnosis and treatment plan as listed above, goals of care, and symptom management. Case was discussed with nursing staff,
specialists, and care coordinators/case management. All labs and imaging personally reviewed by me. Remainder the time spent in detailed review of previous records, lab data, imaging, and other medical provider documentation.
Anticipated Discharge: > 48 hours
Subjective/Interval History
-
Date of Service: June 07, 2023
Objective Data
-
Labs:
Laboratory Results
06/07/23
04:09
WBC 19.8 H
Hgb 8.6 L
Hct 25.4 L
Plt Count 161
Sodium 140
Potassium 3.7
Chloride 109 H
Carbon Dioxide 23
BUN 43 H
Creatinine 1.6 H
Glucose 114 H
Calcium 9.1
Vital Signs:
Vital Signs
Temp Pulse Resp BP Pulse Ox
98.1 F 94 27 126/64 93
06/07/23 07:23 06/07/23 09:15 06/07/23 09:15 06/07/23 09:15 06/07/23 09:15
I&O
06/06/23 06/07/23 06/08/23
06:59 06:59 06:59
Intake Total 211.4 / 211.4
Output Total 1000 / 1000
Balance -788.6 / -788.6
[2023-06-07] MEDS: LOW STRENGTH ASPIRIN 81 MG PO (10:36)
[2023-06-07] MEDS: NSS 1000 IV (11:21)
[2023-06-07] MEDS: LOPRESSOR 12.5 MG PO ×2 (11:22→19:02)
[2023-06-07] MEDS: NITRO-BID 0.5 INCH TOPICAL ×3 (11:22→22:54)
--- NOTE | 2023-06-07 11:51 | W.PN.PUL3 ---
Today's Communication / Plan
-
O2
Asp precs
Atbs
NTP/ASA
Assessment
-
Assessment: 87-year-old male with a past medical history of prostate cancer s/p radiation seeds placed, hiatal hernia, GERD, carotid artery disease, chronic sinusitis, and ?COPD who presents from [facility] with a fall. Apparently he fell
from standing position and fell onto his buttocks without loss of consciousness. Initial vitals showed BP 182/86, SpO2 97% on room air, pulse rate 76, respiratory rate 24 and afebrile 97.8 �F. Labs showed leukocytosis to 19.1, anemia to 11.2, mild
hyponatremia 134, metabolic acidosis 21, elevated BUN to 26, and urinalysis was negative for signs of UTI. Head CT performed showing no acute intracranial hemorrhage or scalp soft tissue hematoma, and left hip XR showed acute nondisplaced left
femoral neck fracture. Patient given pain medications in the ER with Dilaudid 0.5 mg IVP x1. 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 Zosyn was started and blood cultures x2 were collected. He also had new oxygen requirements and
initially required nonrebreather at 15 L/min which was weaned down to 6 L/min nasal cannula. Orthopedic surgery is planning for surgery and now pulmonary consulted for preoperative clearance as well as additional management/recommendations.
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
Impression:
#RLL CAP
#Sepsis due to above without shock
#NSTEMI
#Acute cardiogenic pulmonary edema due to ACS
#Acute hypoxic respiratory failure on supplemental oxygen due to sepsis in setting of RLL CAP - worsening in setting of NSTEMI with acute cardiogenic pulmonary edema
#Leukocytosis
#Lactic acidosis
#Fall with left femoral neck fracture s/p insertion of left short cephalomedullary nail POD #0
#Anemia (mild) baseline Hb 12-13g/dL
#Suspected COPD but no PFTs/spirometry on file
Plan:
- Patient was at intermediate-high risk for orthopedic procedure --> developed inferolateral ST depressions with worsening acute hypoxia and cardiogenic pulmonary edema postop
- Cardiology following, nitro drip started --> maintain BP <140/90, wean off nitro drip, currently on NTP
ASA
Increasing troponins
TTE 06-08
Continue O2 protocol
Currently on NC 2L, POx 93%
RLL infitrate, f/u cxr 06-05 with suspected multifocal infiltrates vs pulm fluid overload
- Continue Zosyn
- Follow up blood cultures (NTD); urine antigens for legionella and Strep pneumonia also both negative; MRSA swab negative
- Incentive spirometer encouraged, however with patient's dementia precludes appropriate us
- Continue with supplemental oxygen and maintain SpO2 >90-94%
- Noted wheezing, continue scheduled nebulized bronchodilators
- Maintain euglycemia with goal BG >100 and <180
- DVT ppx
- Guarded prognosis
Data:
CXR 06-05-2023: Mild right basilar pneumonia
CXR 06-05-2022: Interval worsening of patchy bilateral airspace disease, as above, suspicious for multifocal pneumonia.
Left hip XR 06-04-2023:
1. ACUTE NONDISPLACED BASICERVICAL FRACTURE of the LEFT FEMORAL NECK.
2. Mild bilateral osteoarthritis of the hips.
3. 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
Head CT 06-04-2023:
1. No CT evidence for acute intracranial hemorrhage or scalp soft tissue hematoma.
2. SEVERE BILATERAL TEMPORAL LOBE VOLUME LOSS consistent with a severe chronic neurodegenerative disease (probably ALZHEIMER'S DISEASE).
3. Moderate volume loss in the frontal lobes, parietal lobes, and cerebellum.
4. 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
5. Mild white matter leukoaraiosis in both cerebral hemispheres.
6. Previous functional endoscopic sinus surgery.
Subjective Data
-
Date of Service:
Date of Service: June 07, 2023
Chief Complaint: Pulmonary Follow Up
Subjective:
No major events reported
Continues on O2 NC
Review of Systems
General: Unobtainable - Pat Unresp
Objective Data
Data Reviewed
Vital Signs / I&O / Oxygen:
Vital Signs
Temp Pulse Resp BP Pulse Ox
98.4 F 80 27 113/58 93
06/07/23 11:08 06/07/23 11:22 06/07/23 09:15 06/07/23 11:22 06/07/23 10:44
Intake and Output
06/06/23 06/07/23 06/08/23
06:59 06:59 06:59
Intake Total 211.4 / 211.4
Output Total 1000 / 1000
Balance -788.6 / -788.6
SaO2 93
Nasal Cannula flow liters per 2
minute
Physical Exam
General: Respiratory Distress (negative)
HEENT: Normocephalic and Anicteric
Cardiovascular: S1-S2, Regular Rhythm and Peripheral Edema (negative)
Respiratory: Wheeze ([place] bilaterally), Crackles (Right base), Rhonchi (negative), Non-Labored Respirations and Stridor (n)
GI: Soft, Non Distended and Non Tender
Neurology: Tremors (negative) and Non Verbal
Skin: Warm and Dry
Labs/Micro/Reports
Lab Data
06/07/23 04:09
06/07/23 04:09
Microbiology
06/05/23 10:10 Blood/Venous Blood Culture - Preliminary
No Growth in 48 hours- Final report to follow
06/05/23 10:10 Blood/Venous Blood Culture - Preliminary
No Growth in 48 hours- Final report to follow
06/05/23 07:33 Nose MRSA Screen - Final
No Methicillin Resistant Staphylococcus aureus isolated.
06/05/23 13:25 Urine Legionella Urinary Antigen - Final
Negative for Legionella pneumophila Serogroup 1 antigen.
A negative result does not rule out the possiblity of
Legionella infection due to other serogroups or species of
Legionella. Clinical correlation is recommended.
06/05/23 13:25 Urine Streptococcus pneumoniae Antigen (M - Final
Negative for Streptococcus pneumoniae antigen.
A negative result does not exclude infection with
Streptococcus pneumoniae. Clinical correlation is
recommended.
--- NOTE | 2023-06-07 12:03 | W.PN.ORTHO ---
Today's Communication / Plan
-
87-year-old male history of dementia postop day 1 status post left short cephalomedullary nail with NSTEMI postoperatively
Weightbearing as tolerated left lower extremity
PT OT
DVT prophylaxis: Recommend Lovenox 28 days renally dosed once otherwise medically contraindicated
Pain control
Medical management per primary team/cardiology
Plan follow-up with myself 2 to 3 weeks outpatient basis for repeat milligrams of interval deepak
Subjective
.
.:
Patient resting comfortably in bed. Noncommunicative. Patient reportedly with NSTEMI postoperatively yesterday. Nursing staff reports that he did well with physical therapy this morning
Vital Signs and Labs
.
Vital Signs and Labs:
Lab Results
06/07/23 04:09
06/07/23 04:09
Temp Pulse Resp BP Pulse Ox
98.4 F 80 27 113/58 93
06/07/23 11:08 06/07/23 11:22 06/07/23 09:15 06/07/23 11:22 06/07/23 10:44
Physical Exam
-
Musculoskeletal left lower extremity
Mild bloody drainage on left hip dressing
Leg lengths equal
No visible grimace or pain with passive motion of left hip
Unable to comply with detailed motor or sensory examination
Distal extremity warm and pink
--- NOTE | 2023-06-07 14:13 | PTOTSP ---
SPEECH THERAPY SWALLOW EVALUATION:
Clinical signs of oropharyngeal dysphagia, likely chronic related to pre-existing dementia and acutely exacerbated by weakness/deconditioning related to current hip fracture, surgery/anesthesia, aspiration pneumonia from vomiting episode. Patient is
at high risk for aspiration and related complications given current cognitive status and confusion. Patient is clearly unsafe for oral diet or oral medications at this time. Recommend strict NPO with short-term alternate means for
nutrition/medication/nutrition. ST to follow, re-assess patient in 24 hours, determine readiness for additional textures/trials, determine readiness/indication for VFSS, and provide continued diagnostic swallow therapy as appropriate.
RECOMMEND:
1) strict NPO with short-term alternate means for nutrition/medication/nutrition
2) ST to re-assess patient in 24 hours
3) ST to follow, determine readiness for additional textures/trials, determine readiness/indication for VFSS, and provide continued diagnostic swallow therapy as appropriate
--- NOTE | 2023-06-07 14:59 | PTCARENOTE ---
Pt pleasantly confused and resting comfortably in bed. Taken off wrist restraints and switched to mitts which resulted in less agitation. AAO x 1; Confused conversation. OOB PRN for commode; BP within target range, continues with nitro drip and
is to be switched to Nitro-BID ointment. Attempted to feed breakfast in AM, Pt unable to follow direction and coughed with each bite - stopped feeding and Pt switched to NPO. Speech to eval. Will continue to monitor and assess.
[2023-06-07] MEDS: LIPITOR 10 MG PO (19:02)
[2023-06-07] MEDS: ARICEPT 10 MG PO (19:02)
[2023-06-07] MEDS: COLACE PO (19:03)
--- NOTE | 2023-06-07 22:09 | PTCARENOTE ---
Pt received at beginning of shift resting in bed. AAOx1. Afebrile. SR on CM rate 70's. BP 116/54 POX 95% RA. RR 27. Pt appeared uncomfortable. Given prn Morphine with good result. B/L mitts on with all side rails up. #[address] draining yellow
urine. Left hip and left lateral leg dressing with moderate amount shadowing, marked and will continue to assess. Neurovascular checks completed on left leg as documented. Knee high scd's on and working. Rest of assessment as documented. Maintained
on Q2hr turns. Bed alarm on and working. Will continue to monitor.
[2023-06-08] VITALS (18 sets, daily range): BP systolic 112–143; BP diastolic 47–96; PULSE 103–130; O2SAT 93; BMI 23.9
[2023-06-08] MEDS: NSS 1000 IV ×2 (03:21→22:08)
[2023-06-08] MEDS: NITRO-BID 0.5 INCH TOPICAL ×4 (05:02→23:50)
[2023-06-08] MEDS: ZOSYN 50 IV ×4 (05:02→23:51)
[2023-06-08] MEDS: DUONEB 3 ML INH ×3 (07:39→20:07)
--- NOTE | 2023-06-08 07:39 | W.PN.CD ---
Addendum entered and electronically signed by Hamilton Jung MD 06/08/23 10:39:
Patient currently n.p.o. will keep on Nitropaste rather than Imdur
Original Note:
Today's Communication / Plan
-
Transition nitro paste to isosorbide mononitrate.
Continue beta-purvi, aspirin and statin
Monitor hemoglobin and optimize treatment of anemia as directed by hospitalist.
Echocardiogram Friday
Impression / Plan
-
NSTMI
- post op in PACU patient with diffuse ST depression in setting of resp insufficiency and tacycardia
- ECG changes resolved last night and ECG remains stable
- peak troponin 21
- drop in HB to 8.6 and patient immediately post op - heparin not added. Continue to monitor hemoglobin and treat anemia.
- Continue ASA
- statin
-Continue metoprolol. Patient tolerating well no wheezing. Change nitro paste to isosorbide
- echo friday
resp insufficnecy -patient noted to have pneumonia suspected to have component of heart failure when in PACU so was given Lasix. Chest x-ray with worsening patchy infiltrates and suspected multifocal pneumonia. Patient at risk for aspiration.
Respiratory status has improved. No wheezing currently.
-Wean O2 as tolerated
-Treatment of pneumonia as directed by primary team and office cleaner
-With creatinine up to 1.6 would hold off on additional diuretic right now.
Pneumonia. Treatment directed by primary team and hospitalist.
Fall with acute nondisplaced basicervical fracture of the left femoral neck S/P insertion left short cephalomedullary nail (Dr. Card, 06/06/23)
Dementia, significant
Physical Exam
Vital Signs/Labs
Vital Signs
Temp Pulse Resp BP Pulse Ox
97.5 F 72 23 140/71 97
06/08/23 03:00 06/08/23 05:02 06/08/23 04:00 06/08/23 05:02 06/08/23 04:00
06/07/23 06/08/23 06/09/23
06:59 06:59 06:59
Actual Weight 81.1 kg 80.1 kg
Magnesium 2.0 mg/dl (1.6-2.3) 06/06/23 08:47
06/05/23
05:08
[id number] Pept 3260
LAB Results
06/06/23 06/06/23 06/07/23
15:39 21:24 04:09
Troponin I 1.100 H* 14.600 H* D 21.300 H* D
Physical Exam
Constitutional: No acute distress
EENT: Anicteric
Cardiovascular: Rhythm & rate is regular
Respiratory: Wheeze Absent and Rhonchi Absent
GI: Soft
Neuro/Psych: Alert
Data Reviewed
-
Date of Service: June 08, 2023
Medical Decision Making: Reviewed Test Results
Medical Tests (PFT, Pathology etc): Report Reviewed by me
Labs: Labs Reviewed by me
[2023-06-08] MEDS: LOW STRENGTH ASPIRIN PO (07:43)
[2023-06-08] MEDS: COLACE PO ×2 (07:43→20:12)
[2023-06-08] MEDS: NORVASC PO (07:43)
[2023-06-08] MEDS: LOPRESSOR PO ×2 (07:43→20:12)
[2023-06-08] MEDS: LOVENOX 40 MG SC (07:44)
[2023-06-08] MEDS: ULTRAM PO (07:44)
[2023-06-08] MEDS: LIDOCAINE 4% PATCH 1 PATCH TOPICAL (07:44)
--- NOTE | 2023-06-08 08:53 | W.PN.HOSP.TC ---
Today's Communication/Plan
-
see bold
Assessment / Plan
Assessment / Plan
Gen: NAD, Awake and alert
Eyes: EOMI, PERRLA, no scleral icterus.
Neck: supple.
CV: RRR, +S1/S2, no m/r/g.
Resp: CTAB anteriorly, no rales, wheezes, or rhonchi.
Abd: +BS, soft, NT, ND
Skin: No rashes.
Neuro: CN 2-12 intact, non-focal.
Psych: flat affect.
06/05/23 10:10 Blood/Venous Blood Culture - Preliminary
No Growth in 48 hours- Final report to follow
06/05/23 10:10 Blood/Venous Blood Culture - Preliminary
No Growth in 48 hours- Final report to follow
06/05/23 07:33 Nose MRSA Screen - Final
No Methicillin Resistant Staphylococcus aureus isolated.
06/05/23 13:25 Urine Legionella Urinary Antigen - Final
Negative for Legionella pneumophila Serogroup 1 antigen.
A negative result does not rule out the possiblity of
Legionella infection due to other serogroups or species of
Legionella. Clinical correlation is recommended.
06/05/23 13:25 Urine Streptococcus pneumoniae Antigen (M - Final
Negative for Streptococcus pneumoniae antigen.
A negative result does not exclude infection with
Streptococcus pneumoniae. Clinical correlation is
recommended.
CXR 06/06/23: Interval worsening of patchy bilateral airspace disease, as above, suspicious for multifocal pneumonia.
Acute nondisplaced basicervical fracture of the left femoral neck:
-s/p ORIF, Insertion left short cephalomedullary nail, on 06/06/23
-Orthopedics following, post-op care as per ortho
Sepsis due to aspiration pneumonia:
-Leukocytosis improving, 19.8 yesterday (today's labs pending)
-BCxs NGTD
-lactic acidosis has resolved
-cont Zosyn
-speech following
OLGA:
-cont IVFs
-AM Cr pending
Acute hypoxic respiratory failure:
-Due to aspiration pneumonia and likely underlying COPD
-currently on 2L NC O2
-NPO for now as per speech
NSTEMI:
-Patient had diffuse ST depressions in the PACU after surgery. This was in the setting of respiratory failure and tachycardia. ST depressions have since resolved.
-trop worsening, most recently 21.3 (AM trop pending)
-cont BB (started 06/07/23)
-echo 06/09/23
-was on NTG gtt, now off
-cont ASA 81
-no heparin with post-op acute blood loss anemia
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
Osteoarthritis
h/o frequent falls with prior right rib fractures
Dementia: Continue donepezil
Anxiety/depression
GERD: Continue PPI
Essential hypertension: Continue amlodipine
Hyperlipidemia: cont statin
Chronic anemia, currently with acute blood loss anemia
BPH: Continue tamsulosin
DNR/DNI
DVT prophylaxis�SCDs
Total time spent on today's encounter was 51 minutes which included time spent in counseling the patient/family regarding diagnosis and treatment plan as listed above, goals of care, and symptom management. Case was discussed with nursing staff,
specialists, and care coordinators/case management. All labs and imaging personally reviewed by me. Remainder the time spent in detailed review of previous records, lab data, imaging, and other medical provider documentation.
Anticipated Discharge: > 48 hours
Subjective/Interval History
-
Date of Service: June 08, 2023
Currently nonverbal.
Objective Data
-
Labs:
Laboratory Results
06/08/23
07:37
WBC Pending
Hgb Pending
Hct Pending
Plt Count Pending
Sodium Pending
Potassium Pending
Chloride Pending
Carbon Dioxide Pending
BUN Pending
Creatinine Pending
Glucose Pending
Calcium Pending
Vital Signs:
Vital Signs
Temp Pulse Resp BP Pulse Ox
97.5 F 73 20 140/71 97
06/08/23 03:00 06/08/23 07:45 06/08/23 07:45 06/08/23 05:02 06/08/23 07:45
I&O
06/07/23 06/08/23 06/09/23
06:59 06:59 06:59
Intake Total 211.4 / 211.4 1210 / 1210
Output Total 1000 / 1000 750 / 750
Balance -788.6 / -788.6 460 / 460
[2023-06-08 09:41] LABS: % Basophils 0.6 % (0-2); % Eosinophils 0.7 % (0-6); % Immature Granulocytes 1.6 % (0-0.5); % Lymphocytes 6.1 % (20.5-51.1); % Monocytes 7.9 % (1.7-9.3); % Neutrophils 83.1 % (42.2-75.2); Absolute Basophils 0.1 10^3/uL (0-0.2); Absolute Eosinophils 0.1 10^3/uL (0-0.7); Absolute Immature Granulocytes 0.3 10^3/uL (0-0.05); Absolute Lymphocytes 1.1 10^3/uL (1.2-3.4); Absolute Monocytes 1.4 10^3/uL (0.1-0.6); Absolute Neutrophils 14.9 10^3/uL (1.4-6.5); Hematocrit 28.4 % (39.0-52.0); Hemoglobin 9.2 g/dL (13.0-18.0); Mean Corp Hgb Conc. 32.4 g/dL (33.0-37.0); Mean Corpuscular Hgb 29.9 pg (27.0-31.0); Mean Corpuscular Volume 92.2 fL (80.0-94.0); Mean Platelet Volume 9.2 fL (7.4-10.4); Nucleated Red Blood Cells % 0 % (-); Platelet Count 199 10^3/uL (130-400); Red Blood Cell Count 3.08 10^6/uL (4.70-6.10); White Blood Cell Count 17.9 10^3/uL (4.8-10.8)
[2023-06-08 10:03] LABS: Albumin 3.5 g/dl (3.5-5.0); Blood Urea Nitrogen 48 mg/dl (9-20); Calcium 9.6 mg/dl (8.4-10.2); Carbon Dioxide 23 mmol/L (22-30); Chloride 113 mmol/L (98-107); Estimated Creatinine Clearance 42 ml/min; Glucose 107 mg/dl (70-99); Phosphorus 2.9 mg/dl (2.5-4.5); Potassium 3.6 mmol/L (3.5-5.1); Sodium 142 mmol/L (135-145); eGFR 48.95
[2023-06-08] MEDS: MORPHINE SULFATE 2 MG IV ×2 (11:45→19:30)
[2023-06-08] MEDS: TYLENOL/FEVERALL 650 MG RECTAL (11:47)
--- NOTE | 2023-06-08 13:00 | W.PN.PUL3 ---
Today's Communication / Plan
-
O2
Asp precs
Atb
BDs
Assessment
-
Assessment: 87-year-old male with a past medical history of prostate cancer s/p radiation seeds placed, hiatal hernia, GERD, carotid artery disease, chronic sinusitis, and ?COPD who presents from [facility] with a fall. Apparently he fell
from standing position and fell onto his buttocks without loss of consciousness. Initial vitals showed BP 182/86, SpO2 97% on room air, pulse rate 76, respiratory rate 24 and afebrile 97.8 �F. Labs showed leukocytosis to 19.1, anemia to 11.2, mild
hyponatremia 134, metabolic acidosis 21, elevated BUN to 26, and urinalysis was negative for signs of UTI. Head CT performed showing no acute intracranial hemorrhage or scalp soft tissue hematoma, and left hip XR showed acute nondisplaced left
femoral neck fracture. Patient given pain medications in the ER with Dilaudid 0.5 mg IVP x1. 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 Zosyn was started and blood cultures x2 were collected. He also had new oxygen requirements and
initially required nonrebreather at 15 L/min which was weaned down to 6 L/min nasal cannula. Orthopedic surgery is planning for surgery and now pulmonary consulted for preoperative clearance as well as additional management/recommendations.
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
Impression:
#RLL CAP
#Sepsis due to above without shock
#NSTEMI
#Acute cardiogenic pulmonary edema due to ACS
#Acute hypoxic respiratory failure on supplemental oxygen due to sepsis in setting of RLL CAP - worsening in setting of NSTEMI with acute cardiogenic pulmonary edema
#Leukocytosis
#Lactic acidosis
#Fall with left femoral neck fracture s/p insertion of left short cephalomedullary nail POD #0
#Anemia (mild) baseline Hb 12-13g/dL
#Suspected COPD but no PFTs/spirometry on file
Plan:
- Patient was at intermediate-high risk for orthopedic procedure --> developed inferolateral ST depressions with worsening acute hypoxia and cardiogenic pulmonary edema postop
- Cardiology following, nitro drip started --> maintain BP <140/90, wean off nitro drip, currently on NTP
ASA
TTE 06-08
Continue O2 protocol
Currently on NC 2L, POx 93-95%
RLL infitrate, f/u cxr 06-05 with suspected multifocal infiltrates vs pulm fluid overload
- Continue Zosyn, started 06-05
- Follow up blood cultures (NTD); urine antigens for legionella and Strep pneumonia also both negative; MRSA swab negative
- Incentive spirometry will be useful, however patient's dementia precludes appropriate use
- Noted wheezing, continue scheduled nebulized bronchodilators for now
- Maintain euglycemia with goal BG >100 and <180
- DVT ppx
- Guarded prognosis
Data:
CXR 06-05-2023: Mild right basilar pneumonia
CXR 06-05-2022: Interval worsening of patchy bilateral airspace disease, as above, suspicious for multifocal pneumonia.
Left hip XR 06-04-2023:
1. ACUTE NONDISPLACED BASICERVICAL FRACTURE of the LEFT FEMORAL NECK.
2. Mild bilateral osteoarthritis of the hips.
3. 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
Head CT 06-04-2023:
1. No CT evidence for acute intracranial hemorrhage or scalp soft tissue hematoma.
2. SEVERE BILATERAL TEMPORAL LOBE VOLUME LOSS consistent with a severe chronic neurodegenerative disease (probably ALZHEIMER'S DISEASE).
3. Moderate volume loss in the frontal lobes, parietal lobes, and cerebellum.
4. 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
5. Mild white matter leukoaraiosis in both cerebral hemispheres.
6. Previous functional endoscopic sinus surgery.
Subjective Data
-
Date of Service:
Date of Service: June 08, 2023
Chief Complaint: Pulmonary Follow Up
Subjective:
More awake today as compared to my visit just today morning
Remains restrained, history of severe dementia
Continues to supplemental oxygen at 2 L with saturation in the mid 90s
No major events reported by RN at bedside
Review of Systems
General: Unobtainable - Pat Unresp (Dementia)
Objective Data
Data Reviewed
Vital Signs / I&O / Oxygen:
Vital Signs
Temp Pulse Resp BP Pulse Ox
99.3 F 92 20 125/60 95
06/08/23 07:52 06/08/23 11:44 06/08/23 07:45 06/08/23 11:44 06/08/23 10:53
Intake and Output
06/07/23 06/08/23 06/09/23
06:59 06:59 06:59
Intake Total 211.4 / 211.4 1210 / 1210
Output Total 1000 / 1000 750 / 750
Balance -788.6 / -788.6 460 / 460
SaO2 95
Nasal Cannula flow liters per 2
minute
Physical Exam
General: Respiratory Distress (negative)
HEENT: Normocephalic and Anicteric
Cardiovascular: S1-S2, Regular Rhythm and Peripheral Edema (negative)
Respiratory: Wheeze ([place] bilaterally), Crackles (Right base), Rhonchi (negative), Non-Labored Respirations and Stridor (n)
GI: Soft, Non Distended and Non Tender
Neurology: Tremors (negative) and Other (Dementia)
Skin: Warm and Dry
Labs/Micro/Reports
Lab Data
06/08/23 09:27
06/08/23 09:27
Microbiology
06/05/23 10:10 Blood/Venous Blood Culture - Preliminary
No Growth in 72 hours- Final report to follow
06/05/23 10:10 Blood/Venous Blood Culture - Preliminary
No Growth in 72 hours- Final report to follow
06/05/23 07:33 Nose MRSA Screen - Final
No Methicillin Resistant Staphylococcus aureus isolated.
06/05/23 13:25 Urine Legionella Urinary Antigen - Final
Negative for Legionella pneumophila Serogroup 1 antigen.
A negative result does not rule out the possiblity of
Legionella infection due to other serogroups or species of
Legionella. Clinical correlation is recommended.
06/05/23 13:25 Urine Streptococcus pneumoniae Antigen (M - Final
Negative for Streptococcus pneumoniae antigen.
A negative result does not exclude infection with
Streptococcus pneumoniae. Clinical correlation is
recommended.
--- NOTE | 2023-06-08 18:05 | W.PN.UPDATE ---
Update Note
Progress Note Update
patient tachycardic this afternoon with EKG showing ST depressions once again. Does not appear to be in distress or in pain. Case discussed with Dr. Jung, will give IV metop x 1 now (cannot take PO 2/2 dysphagia) and continue q 6 hours
standing. will repeat Troponins
[2023-06-08] MEDS: LOPRESSOR 5 MG IV ×2 (18:15→23:50)
[2023-06-08] MEDS: CARDIZEM 10 MG IV (19:54)
[2023-06-08] MEDS: LIPITOR PO (20:12)
[2023-06-08] MEDS: ARICEPT PO (20:12)
[2023-06-08] MEDS: CARDIZEM 125 IV (20:32)
--- NOTE | 2023-06-08 21:00 | PTCARENOTE ---
Pt received from previous shift in bed, tachypneic with increased WOB, HR 130s. TT to providers regarding status. Spoke w/Dr. Jung via telephone --> orders obtained to give cardizem IV bolus and IV cardizem drip at 5 mL/hr - titrate to keep HR
<100. (refer to APR). PRN Morphine administered per order for SOB/tachypnea (refer to MAR). Pt remains in bilateral mitts w/4 side rails up. PO meds not administered at pt unable to follow direction. Plan of care continues.
[2023-06-09] VITALS (12 sets, daily range): BP systolic 130–163; BP diastolic 69–103; BMI 24.2
[2023-06-09] MEDS: MORPHINE SULFATE 2 MG IV ×2 (01:08→06:12)
--- NOTE | 2023-06-09 03:20 | PTCARENOTE ---
HR better controlled in the 90s - SR, IV cardizem titrated per orders. Full physical assessment completed (refer to worklist). IV cardizem infusing via #20 RFA, IVF infusing via #22 LFA. Turned and positioned for comfort. Pt still tachypneic, IV
morphine administered per orders (refer to APR). L hip aquacell dressings w/old drainage. O2 titrated to maintain SpO2 >92%. Plan of care continues.
--- NOTE | 2023-06-09 03:45 | PTCARENOTE ---
0030 troponin = 8.040. 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
[2023-06-09] MEDS: NITRO-BID 0.5 INCH TOPICAL ×2 (06:11→11:52)
[2023-06-09] MEDS: ZOSYN 50 IV ×2 (06:12→11:48)
[2023-06-09] MEDS: LOPRESSOR 5 MG IV ×2 (06:12→11:38)
[2023-06-09] MEDS: DUONEB 3 ML INH ×2 (07:33→13:51)
--- NOTE | 2023-06-09 08:53 | W.PN.HOSP.TC ---
Today's Communication/Plan
-
Hospice care discussions took place today.
Assessment / Plan
Assessment / Plan
Gen: NAD, Awake and alert
Eyes: EOMI, PERRLA, no scleral icterus.
Neck: supple.
CV: RRR, +S1/S2, no m/r/g.
Resp: CTAB anteriorly, no rales, wheezes, or rhonchi.
Abd: +BS, soft, NT, ND
Skin: No rashes.
Neuro: CN 2-12 intact, non-focal.
Psych: flat affect.
06/05/23 10:10 Blood/Venous Blood Culture - Preliminary
No Growth in 48 hours- Final report to follow
06/05/23 10:10 Blood/Venous Blood Culture - Preliminary
No Growth in 48 hours- Final report to follow
06/05/23 07:33 Nose MRSA Screen - Final
No Methicillin Resistant Staphylococcus aureus isolated.
06/05/23 13:25 Urine Legionella Urinary Antigen - Final
Negative for Legionella pneumophila Serogroup 1 antigen.
A negative result does not rule out the possiblity of
Legionella infection due to other serogroups or species of
Legionella. Clinical correlation is recommended.
06/05/23 13:25 Urine Streptococcus pneumoniae Antigen (M - Final
Negative for Streptococcus pneumoniae antigen.
A negative result does not exclude infection with
Streptococcus pneumoniae. Clinical correlation is
recommended.
CXR 06/06/23: Interval worsening of patchy bilateral airspace disease, as above, suspicious for multifocal pneumonia.
A/P:
Acute nondisplaced basicervical fracture of the left femoral neck:
-s/p ORIF, Insertion left short cephalomedullary nail, on 06/06/23
-Orthopedics following, post-op care as per ortho
Sepsis due to aspiration pneumonia:
-Leukocytosis improving, 21.3 today
-BCxs NGTD
-lactic acidosis has resolved
-cont Zosyn
-speech following
OLGA:
-cont IVFs
-AM Cr 1.5
Hypernatremia:
- NA 148
Acute hypoxic respiratory failure:
-Due to aspiration pneumonia and likely underlying COPD
-currently on 2L NC O2
-NPO for now as per speech
NSTEMI:
-Patient had diffuse ST depressions in the PACU after surgery. This was in the setting of respiratory failure and tachycardia. ST depressions have since resolved.
-trop worsening, most recently 21.3 (AM trop pending)
-cont BB (started 06/07/23)
-echo 06/09/23
-was on NTG gtt, now off
-cont ASA 81
-no heparin with post-op acute blood loss anemia
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
Osteoarthritis
h/o frequent falls with prior right rib fractures
Dementia: Continue donepezil
Anxiety/depression
GERD: Continue PPI
Essential hypertension: Continue amlodipine
Hyperlipidemia: cont statin
Chronic anemia, currently with acute blood loss anemia
BPH: Continue tamsulosin
DNR/DNI
DVT prophylaxis�SCDs
I had lengthy discussion today with cardiology, pulmonary, and family. In light of his poor clinical status and given his comorbidities I had a rosa maria discussion about hospice today. Daughter although tearful she understands and agrees with current
plan. Moving forward he will be on comfort care measures. Hospice care consulted. He will be discharged and admitted to inpatient hospice care today.
Total time spent on today's encounter was 51 minutes which included time spent in counseling the patient/family regarding diagnosis and treatment plan as listed above, goals of care, and symptom management. Case was discussed with nursing staff,
specialists, and care coordinators/case management. All labs and imaging personally reviewed by me. Remainder the time spent in detailed review of previous records, lab data, imaging, and other medical provider documentation.
Anticipated Discharge: Today
Subjective/Interval History
-
Date of Service: June 09, 2023
Patient is still short of breath, still on supplemental oxygen, tachypneic. Looks frail overall.
Objective Data
-
Vital Signs:
Vital Signs
Temp Pulse Resp BP Pulse Ox
99.1 F 94 34 152/91 90
06/09/23 07:10 06/09/23 07:35 06/09/23 07:35 06/09/23 06:13 06/09/23 07:35
I&O
06/08/23 06/09/23 06/10/23
06:59 06:59 06:59
Intake Total 1210 / 1210 760 / 760
Output Total 750 / 750 350 / 350
Balance 460 / 460 410 / 410
[2023-06-09] MEDS: COLACE PO (09:10)
[2023-06-09] MEDS: LOPRESSOR PO (09:10)
[2023-06-09] MEDS: LOW STRENGTH ASPIRIN PO (09:10)
[2023-06-09] MEDS: NORVASC PO (09:11)
[2023-06-09] MEDS: LIDOCAINE 4% PATCH 1 PATCH TOPICAL (09:11)
[2023-06-09] MEDS: ULTRAM PO (09:11)
[2023-06-09] MEDS: LOVENOX 40 MG SC (09:11)
--- NOTE | 2023-06-09 09:36 | W.PN.PUL3 ---
Today's Communication / Plan
-
Continue DuoNebs
Add Pulmicort
Consider diuresis
Continue antibiotic
Continue supplemental oxygen
Prognosis is guarded
Assessment
-
Assessment: 87-year-old male with a past medical history of prostate cancer s/p radiation seeds placed, hiatal hernia, GERD, carotid artery disease, chronic sinusitis, and ?COPD who presents from [facility] with a fall. Apparently he fell
from standing position and fell onto his buttocks without loss of consciousness. Initial vitals showed BP 182/86, SpO2 97% on room air, pulse rate 76, respiratory rate 24 and afebrile 97.8 �F. Labs showed leukocytosis to 19.1, anemia to 11.2, mild
hyponatremia 134, metabolic acidosis 21, elevated BUN to 26, and urinalysis was negative for signs of UTI. Head CT performed showing no acute intracranial hemorrhage or scalp soft tissue hematoma, and left hip XR showed acute nondisplaced left
femoral neck fracture. Patient given pain medications in the ER with Dilaudid 0.5 mg IVP x1. roving winder on 06/04, he spiked a fever to 102 �F. Zosyn was started and blood cultures x2 were collected. He also had new oxygen requirements and
initially required nonrebreather at 15 L/min which was weaned down to 6 L/min nasal cannula. Orthopedic surgery is planning for surgery and now pulmonary consulted for preoperative clearance as well as additional management/recommendations.
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
Impression:
#RLL CAP
#Sepsis due to above without shock
#NSTEMI
#Acute cardiogenic pulmonary edema due to ACS
#Acute hypoxic respiratory failure on supplemental oxygen due to sepsis in setting of RLL CAP - worsening in setting of NSTEMI with acute cardiogenic pulmonary edema
#Leukocytosis
#Lactic acidosis
#Fall with left femoral neck fracture s/p insertion of left short cephalomedullary nail POD #0
#Anemia (mild) baseline Hb 12-13g/dL
#Suspected COPD but no PFTs/spirometry on file
Plan:
Unfortunately, continues to have increased work of breathing.
Rhonchorous/expiratory wheezing bilaterally.
Remains on 6 L supplemental oxygen.
Respiratory status is tenuous.
DNR status noted.
-
Respiratory failure likely combination of possibly pulmonary edema and aspiration/community-acquired pneumonia.
-
RLL infitrate, f/u cxr 06-05 with suspected multifocal infiltrates vs pulm fluid overload
- Continue Zosyn, started 06-05
- Follow up blood cultures (NTD); urine antigens for legionella and Strep pneumonia also both negative; MRSA swab negative
- Incentive spirometry will be useful, however patient's dementia precludes appropriate use
- Noted wheezing, continue scheduled nebulized bronchodilators for now
Will add Pulmicort given ongoing wheezing.
-
Continue heart rate control with Cardizem
Consider diuretics
-
Delirium on dementia-Altered mental status: Patient not following commands. Moaning.
-
- Maintain euglycemia with goal BG >100 and <180
- DVT ppx
- Guarded prognosis, if continues to deteriorate, focus on comfort.

Data:
CXR 06-05-2023: Mild right basilar pneumonia
CXR 06-05-2022: Interval worsening of patchy bilateral airspace disease, as above, suspicious for multifocal pneumonia.
Left hip XR 06-04-2023:
1. ACUTE NONDISPLACED BASICERVICAL FRACTURE of the LEFT FEMORAL NECK.
2. Mild bilateral osteoarthritis of the hips.
3. 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
Head CT 06-04-2023:
1. No CT evidence for acute intracranial hemorrhage or scalp soft tissue hematoma.
2. SEVERE BILATERAL TEMPORAL LOBE VOLUME LOSS consistent with a severe chronic neurodegenerative disease (probably ALZHEIMER'S DISEASE).
3. Moderate volume loss in the frontal lobes, parietal lobes, and cerebellum.
4. 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
5. Mild white matter leukoaraiosis in both cerebral hemispheres.
6. Previous functional endoscopic sinus surgery.
Subjective Data
-
Date of Service:
Date of Service: June 09, 2023
Chief Complaint: Pulmonary Follow Up
Subjective:
Patient is noncommunicative.
Increased work of breathing
Moaning
Remains on supplemental oxygen 6 L.
Review of Systems
General: Other (Unable to obtain due to baseline mental status possibly delirium.)
Objective Data
Data Reviewed
Vital Signs / I&O / Oxygen:
Vital Signs
Temp Pulse Resp BP Pulse Ox
99.1 F 94 34 152/91 90
06/09/23 07:10 06/09/23 07:35 06/09/23 07:35 06/09/23 06:13 06/09/23 07:35
Intake and Output
06/08/23 06/09/23 06/10/23
06:59 06:59 06:59
Intake Total 1210 / 1210 760 / 760
Output Total 750 / 750 350 / 350
Balance 460 / 460 410 / 410
SaO2 90
Nasal Cannula flow liters per 5
minute
Physical Exam
General: Respiratory Distress (Significant at rest)
HEENT: Normocephalic and Anicteric
Cardiovascular: S1-S2, Regular Rhythm and Peripheral Edema (negative)
Respiratory: Wheeze (Burt bilaterally), Crackles (Right base), Rhonchi (Bilaterally), Accessory Resp Muscle Use (y) and Stridor (n)
GI: Soft, Non Distended and Non Tender
Neurology: Tremors (negative), Other (Dementia) and Other (Noncommunicative.)
Skin: Warm and Dry
Labs/Micro/Reports
Microbiology
06/05/23 10:10 Blood/Venous Blood Culture - Preliminary
No Growth in 72 hours- Final report to follow
06/05/23 10:10 Blood/Venous Blood Culture - Preliminary
No Growth in 72 hours- Final report to follow
06/05/23 07:33 Nose MRSA Screen - Final
No Methicillin Resistant Staphylococcus aureus isolated.
[2023-06-09 09:57] LABS: % Basophils 0.6 % (0-2); % Immature Granulocytes 3.9 % (0-0.5); % Lymphocytes 4.4 % (20.5-51.1); % Monocytes 7.6 % (1.7-9.3); % Neutrophils 83.5 % (42.2-75.2); Absolute Basophils 0.1 10^3/uL (0-0.2); Absolute Immature Granulocytes 0.8 10^3/uL (0-0.05); Absolute Lymphocytes 0.9 10^3/uL (1.2-3.4); Absolute Monocytes 1.6 10^3/uL (0.1-0.6); Absolute Neutrophils 17.8 10^3/uL (1.4-6.5); Hematocrit 32.2 % (39.0-52.0); Hemoglobin 10.4 g/dL (13.0-18.0); Mean Corp Hgb Conc. 32.3 g/dL (33.0-37.0); Mean Corpuscular Hgb 30.4 pg (27.0-31.0); Mean Corpuscular Volume 94.2 fL (80.0-94.0); Mean Platelet Volume 9.2 fL (7.4-10.4); Nucleated Red Blood Cells % 0 % (-); Platelet Count 251 10^3/uL (130-400); Red Blood Cell Count 3.42 10^6/uL (4.70-6.10); Red Cell Dist. Width 15.2 % (11.5-14.5); White Blood Cell Count 21.3 10^3/uL (4.8-10.8)
[2023-06-09 10:08] LABS: ALT (SGPT) 20 U/L (0-50); AST (SGOT) 46 U/L (17-59); Albumin 3.4 g/dl (3.5-5.0); Alkaline Phosphatase 67 U/L (38-126); Blood Urea Nitrogen 54 mg/dl (9-20); Calcium 9.5 mg/dl (8.4-10.2); Carbon Dioxide 19 mmol/L (22-30); Chloride 118 mmol/L (98-107); Estimated Creatinine Clearance 39 ml/min; Glucose 113 mg/dl (70-99); Magnesium 2.7 mg/dl (1.6-2.3); Potassium 3.9 mmol/L (3.5-5.1); Sodium 148 mmol/L (135-145); Total Protein 6.4 g/dl (6.3-8.2); eGFR 45.06
--- NOTE | 2023-06-09 10:20 | W.PN.CD ---
Today's Communication / Plan
-
Accelerated heart rates yesterday evening with associated ischemic ECG changes. At times patient appeared to have PAF. Unable to take oral meds and take oral beta-purvi. Patient only had transient heart rate control with IV beta-blockers so
patient is now maintained on IV Cardizem.
-Continue IV Cardizem
-Serial troponins.
Patient has increased work of breathing, tachypnea and wheezing and rhonchi. Reviewed with Dr. Gaffney at the bedside. Unclear if change could be related to aspiration. When patient was postop the other day we raise the possibility of heart
failure.
-Treatment of pneumonia optimization of pulmonary status as directed by Dr. Gaffney.
-Additional diuretic given to treat any possible component of heart failure.
Impression / Plan
-
NSTMI
- post op in PACU patient with diffuse ST depression in setting of resp insufficiency and tacycardia
- ECG changes resolved last night and ECG remains stable
- peak troponin 21
-Patient with tachycardia and suspected PAF on 06/08/[address]ressions. Now rate controlled on IV Cardizem. Troponins trending back up from 4 up to 9.
- statin
-Heart rates would not adequately controlled with metoprolol and patient unable to take oral meds. Placed on IV Cardizem for rate control
-Continue nitrates.
- echo
resp insufficnecy -patient noted to have pneumonia suspected to have component of heart failure when in PACU so was given Lasix. Chest x-ray with worsening patchy infiltrates and suspected multifocal pneumonia. Patient at risk for aspiration.
Respiratory status had significantly improved over the weekend but in the morning on 06/09/2023 patient has increased work of breathing, tachypnea and wheezing and rhonchi. Reviewed with Dr. Gaffney at the bedside. Unclear if change could be
related to aspiration. When patient was postop the other day we raise the possibility of heart failure.
-Treatment of pneumonia optimization of pulmonary status as directed by Dr. Gaffney.
-Additional diuretic given to treat any possible component of heart failure.
Pneumonia. Treatment directed by primary team and hospitalist.
NPO. Issues with swallowing. Defer to hospitalist regarding treatment plan for this issue.
Fall with acute nondisplaced basicervical fracture of the left femoral neck S/P insertion left short cephalomedullary nail (Dr. Card, 06/06/23)
Dementia, significant
Physical Exam
Vital Signs/Labs
Vital Signs
Temp Pulse Resp BP Pulse Ox
99.1 F 94 34 152/91 90
06/09/23 07:10 06/09/23 07:35 06/09/23 07:35 06/09/23 06:13 06/09/23 07:35
06/08/23 06/09/23 06/10/23
06:59 06:59 06:59
Actual Weight 80.1 kg 81.2 kg
06/09/23 09:37
Magnesium 2.7 mg/dl (1.6-2.3) H 06/09/23 09:37
06/05/23
05:08
Wsg-E-Hggkzioplok Pept 3260
LAB Results
06/06/23 06/06/23 06/07/23
15:39 21:24 04:09
Troponin I 1.100 H* 14.600 H* D 21.300 H* D
06/08/23 06/08/23 06/09/23
09:27 19:23 00:31
Troponin I 6.280 H* 4.450 H* 8.040 H* D
06/09/23 06/09/23
06:28 09:37
Troponin I 9.640 H* 9.540 H*
Physical Exam
Constitutional: Other (Tachypnea increased work of breathing)
EENT: Anicteric
Cardiovascular: Rhythm & rate is regular
Respiratory: Wheeze Present, Rhonchi Present and Other
GI: Soft and Non tender
Neuro/Psych: Other (Patient is awake but not interactive. History of dementia)
Data Reviewed
-
Date of Service: June 09, 2023
Medical Decision Making: Reviewed Test Results and Review of Case with other Provider (Reviewed issues with Dr. Gaffney at the bedside)
Medical Tests (PFT, Pathology etc): Report Reviewed by me
Labs: Labs Reviewed by me
[2023-06-09] MEDS: LASIX 20 MG IV (10:27)
[2023-06-09] MEDS: CARDIZEM 125 IV (11:18)
--- NOTE | 2023-06-09 11:30 | PTCARENOTE ---
Assumed care of patient at beginning of this shift from previous RN with cardizem infusing at 10mg/hr. Patient's status changed to med-surg/comfort care per Dr Rao. Confirmed with him that patient is to remain on cardizem infusion until family
meets with hospice. Patient remains non-communicative. Seen by multi disciplined language analyst and talkback host this morning. See worklist for full assessment, vital signs and med titration; see worklist for med administration.
--- NOTE | 2023-06-09 12:29 | CM ---
Addendum entered by Randee Darby RN 06/09/23 14:23:
Per Claudia, Hospice; patient to remain here in [facility].
Spoke with Nikita No[facility]; provided clinical update and that patient would remain here in [facility].
Plan [facility].
Original Note:
Patient from [facility] with Hx dementia with Dx fracture of the left femoral neck s/p ORIF/Insertion cephalomedullary nail, Sepsis due to aspiration pneumonia, Acute hypoxic respiratory failure, NSTEMI. O2 5L. Cardizem gtt. Comfort
measures.
CM Consult: Hospice
Met with patient, daughter iLllian & son in law at bedside. Patient remained asleep, occasionally mumbling incoherently. Daughter familiar with hospice as her mother had hospice. Lillian was tearful and shared that she & her had cared for
both of their parents for > 10 years in their home, before patient needed to be placed in SNF when requiring more care. They agree to speaking with hospice nurse.
Offered fisher terrapin and daughter says patient is [employer] and would like fisher terrapin called- pastoral care office notified.
Plan follow up after seen by Hospice.
--- NOTE | 2023-06-09 13:38 | HOSPNOTE ---
Spoke with daughter and patient will be inpatient hospice today. Admissions was called and attending and case management aware of plan.
--- NOTE | 2023-06-09 13:50 | W.DCSUMMARY ---
Discharge Summary
Discharge Data
Date of Admission: 06/04/23
Date of Discharge: 06/09/23
-
Pending Results: No
Hospital Course
Patient 87-year-old male with hypertension, hyperlipidemia, dementia had a fall and found to have a left hip fracture. Course complicated with sepsis, non-ST WV, acute hypoxic respiratory failure, acute kidney injury. Patient was stabilized prior
to hip surgery as much as possible but he remained high risk. He was treated with IV fluids and broad-spectrum IV antibiotics for his sepsis and his lactate went back to normal. EKG and echocardiogram unremarkable prior to surgery. He underwent
surgery but his course has been very rough to say the least. Same day after surgery he presented with WV. He has been on IV antibiotics, oxygen supplementation, limited medications for his WV due to surgery. He continues to do poorly and we had
rosa maria discussions with family who agrees now to change to comfort care measures and start hospice care.
Discharge duration: 35 minutes
Discharge Plan
-
Patient Disposition: Hospice - Inpatient [facility]
Discharge Orders:
Discharge Patient (As Directed); Ordered 06/09/23
Ordered By: Billy Rao
Discharge Date and Time
Discharge Date/Time: 06/09/23 13:52
Print Language: LITHUANIAN
--- NOTE | 2023-06-09 15:23 | PTCARENOTE ---
Patient status changed to hospice; refer to new chart.
--- NOTE | 2023-06-09 15:52 | PTCARENOTE ---
Pt received from previous shift. Pt visibly tired and drowsy, pt groaning, opens eyes to verbal stimuli. Pt on 4L 02, satting 95%. Pt NSR on monitor, Pts HR between 70-90's, Pt received on 10mg/10ml hr Cardizem, Pt dose decreased to 5mg per dosing
order, pts HR remains at 70's. See med titration documentation. Pts family at bedside. Pt NPO. Please see nursing shift assessment for full head to to toe.
== END 2023-06-09 13:52 | disposition hospice, inpatient (51) | DRG 853 ==
LOC: IMU 23:20
PROVIDERS: Nurse Practitioner Family; Nurse Practitioner Gerontology; Orthopaedic Surgery; Physician Assistant; Registered Nurse; Student in an Organized Health Care Education/Training Program; ADMITTING PHYSICIAN Hospitalist; ATTENDING PHYSICIAN Hospitalist; CONSULT PHYSICIAN Internal Medicine Cardiovascular Disease; CONSULT PHYSICIAN Internal Medicine Critical Care Medicine; EMERGENCY PHYSICIAN Emergency Medicine; FAMILY PHYSICIAN Internal Medicine Geriatric Medicine; OTHER PHYSICIAN Orthopaedic Surgery Hand Surgery
PROC: 0QH906Z Insertion of Intramedullary Internal Fixation Device into Left Femoral Shaft, Open Approach (ICD-10-PCS; 2023-06-06)
DX: A41.9 Sepsis, unspecified organism (principal); I21.4 Non-ST elevation (NSTEMI) myocardial infarction; S72.002A Fracture of unspecified part of neck of left femur, initial encounter for closed fracture; J69.0 Pneumonitis due to inhalation of food and vomit; J96.01 Acute respiratory failure with hypoxia; F02.83 Dementia in other diseases classified elsewhere, unspecified severity, with mood disturbance; F02.84 Dementia in other diseases classified elsewhere, unspecified severity, with anxiety; N17.9 Acute kidney failure, unspecified; E87.20 Acidosis, unspecified; E87.1 Hypo-osmolality and hyponatremia; D62 Acute posthemorrhagic anemia; M19.90 Unspecified osteoarthritis, unspecified site; F32.A Depression, unspecified; K21.9 Gastro-esophageal reflux disease without esophagitis; I10 Essential (primary) hypertension; E78.00 Pure hypercholesterolemia, unspecified; D64.9 Anemia, unspecified; Z66 Do not resuscitate; Z87.891 Personal history of nicotine dependence; Z51.5 Encounter for palliative care; W19.XXXA Unspecified fall, initial encounter
CPT/HCPCS: 70450; 71045; 73502; 76000; 80048; 80053; 80069; 81003; 81015; 82805; 83605; 83735; 83880; 84145; 84484; 85025; 85027; 86140; 86850; 86900; 86901; 87040; 87070; 87449; 87899; 92526; 92610; 93005; 93306; 94640; 96374; 97116; 97163; 97167; 99285; C1713; P9047

== ENCOUNTER 2023-06-09 13:55 | Inpatient (IN) | payer OTHER, SELFPAY ==
--- NOTE | 2023-06-09 14:31 | CM ---
Patient from [facility] with Hx dementia with Dx fracture of the left femoral neck s/p ORIF/Insertion cephalomedullary nail, Sepsis due to aspiration pneumonia, Acute hypoxic respiratory failure, NSTEMI. Comfort measures. CM Consult:
Hospice.
CM met with patient, daughter Lillian & son in law today; daughter/LIZZY agreed to meet with hospice nurse.
Per [facility]; patient will remain here in [facility].
JOSESITO spoke with Nikita [facility]; clinical update provided, patient will remain here in [facility].
Plan [facility].
--- NOTE | 2023-06-09 14:34 | HPS.HSE ---
Family Physician
-
Family Physician: NOT KNOW UNKNOWN - PT DOES
Chief Complaint
-
ams and sob
History of Present Illness
Patient 87-year-old male with history of hypertension hyperlipidemia advanced dementia given to the hospital after a fall and sustained left hip fracture. Patient underwent left hip surgery. Course complicated with sepsis, AZ, respiratory failure,
acute kidney failure, in essence multiorgan failure. Patient was placed on antibiotics, oxygen, cardiac medications, and despite all measures patient continued to do poorly. Discussions about hospice took place and family agree with comfort care
measures at this point. Patient with mental status changes, hypoxia, tachycardia, increased work of breathing. Patient will be admitted to inpatient hospice care for further management of symptoms control and decrease suffering. Admitted to
hospitalist service for further evaluation.
Medical History
Past Medical History
Past Medical History: Reports Dementia, HTN and Hypercholesterolemia
Past Surgical History: Reports Other (Left hip repair.)
Social History
Unable to obtain full social history at this time due to: Dementia
Family History
Family History: Not pertinent
Allergies / Home Medications
Allergies reflects when Allergies were last updated in [facility].
Home Medications with original date entered in [facility]
Allergy/Medication List:
Allergies
Allergy/AdvReac Type Severity Reaction Status Date / Time
No Known Allergies Allergy Verified 03/17/20 14:15
Home Medications
trazodone 50 mg tablet 50 mg PO HS Depression 06/24/17
donepezil 10 mg tablet 10 mg PO HS COGNATIVE 03/27/22
amlodipine 5 mg tablet 5 mg PO DAILY #30 tabs 04/03/22
acetaminophen 325 mg tablet 650 mg PO Q4H PRN mild pain/fever>100.4 06/04/23
bisacodyl 10 mg rectal suppository (Dulcolax (bisacodyl)) 10 mg SD DAILY PRN q 3 days when no bm & mom is ineffective 06/04/23
cholecalciferol (vitamin D3) 250 mcg (10,000 unit) tablet 250 mcg PO QWEEK 06/04/23
levocetirizine 5 mg tablet 5 mg PO HS 06/04/23
lidocaine 4 % topical patch (Aspercreme (lidocaine)) 1 patch topical DAILY 06/04/23
magnesium hydroxide 400 mg/5 mL oral suspension (Milk of Magnesia) 30 ml PO HS PRN constipation 06/04/23
omeprazole 10 mg capsule,delayed release 10 mg PO DAILY@0630 06/04/23
sennosides 8.6 mg-docusate sodium 50 mg tablet (Senna-S) 2 tab-cap PO HS 06/04/23
simvastatin 10 mg tablet 10 mg PO HS 06/04/23
sodium phosphates 19 gram-7 gram/118 mL enema (Fleet Enema) 118 ml SD DAILY PRN if dulcolax is ineffective 06/04/23
tamsulosin 0.4 mg capsule 0.4 mg PO QPM 06/04/23
tramadol 50 mg tablet 25 mg PO DAILY 06/04/23
tramadol 50 mg tablet 25 mg PO Q6HPRN PRN moderate pain 06/04/23
Review of Systems
-
Unable to obtain full review of systems at this time due to: Dementia
Physical Exam
Vital Signs
Physical exam:
General: Acutely ill
HEENT: Normocephalic, Atraumatic and Moist Mucous Membranes
Respiratory: Decreased breath sounds bilateral. Crackles. Scattered wheezes and rhonchi
Cardiac: Regular rhythm, tachycardic. S1-S2.
GI: Soft, Nontender and Nondistended
Musculoskeletal: No Clubbing, no joint pain
Neuro: Lethargic, disoriented, no gross neuro-deficits.
Physical Exam
General: Other
Impression/Plan
-
IMPRESSION:
Patient 87-year-old male with advanced dementia and presented with left hip fracture status postsurgical repair and severe sepsis with multiorgan failure with acute kidney injury, acute hypoxic respiratory failure, metabolic encephalopathy, and
acute non-STEMI.
Impression:
Shortness of breath
Mental status changes
Pain
Hypoxia
Sepsis
Acute AZ
Dementia
PLAN:
Pain control
Oxygen
Morphine for pain and shortness of breath
Bowel regimen as needed
Ativan as needed
If multiple boluses of morphine, might consider transition to morphine drip. Order in place.
No need for DVT prophylaxis given comfort measures
CODE STATUS DNR/comfort care.
--- NOTE | 2023-06-09 15:22 | PTCARENOTE ---
Patient now admitted to hospice; family at bedside. See previous chart for pertinent information prior to change in status.
[2023-06-09] MEDS: MORPHINE SULFATE 2 MG IV ×4 (15:29→22:43)
--- NOTE | 2023-06-09 16:13 | HOSPNOTE ---
Patient has been admitted to inpatient level of hospice care. Patient is appropriate for inpatient level of hospice care for the management of anxiety and shortness of breath that could not be managed in the outpatient setting. Daughter Lillian was
present at bedside and signed consents. Informal report with YVETTE Gill. Patient showed a flacc score of 4, mild pain, medicated with Morphine IVP PRN and was effective. Patient also remains in non violent mitten restraints at time of admission.
Patient will be moved to [address] [place], [place] [phone]. Emotional support provided. Patient will be seen daily by hospice.
[2023-06-09 18:12] VITALS: BP 134/75
[2023-06-09] MEDS: ATIVAN 1 MG IV (20:17)
[2023-06-09] MEDS: NSS (PRESERVATIVE FREE) 0.5 ML IV (20:18)
[2023-06-09 20:29] VITALS: BP 140/73
[2023-06-10] MEDS: NSS (PRESERVATIVE FREE) 0.5 ML IV ×4 (00:01→08:12)
[2023-06-10] MEDS: MORPHINE SULFATE 2 MG IV ×7 (00:01→09:59)
[2023-06-10] MEDS: ATIVAN 1 MG IV ×4 (00:02→08:12)
[2023-06-10] MEDS: MORPHINE 100 IV (01:31)
[2023-06-10] MEDS: ROBINUL 0.200000000000000011 MG IV ×2 (01:32→08:12)
[2023-06-10 02:28] VITALS: BMI 24.3
[2023-06-10] MEDS: MORPHINE SULFATE 4 MG IV ×3 (04:58→08:13)
[2023-06-10 07:52] VITALS: BP 93/57
--- NOTE | 2023-06-10 08:31 | W.PN.HOSP.TC ---
Today's Communication/Plan
-
Continue comfort care measures.
Assessment / Plan
Assessment / Plan
Physical exam:
General: Acutely ill
HEENT: Normocephalic, Atraumatic and Moist Mucous Membranes
Respiratory: Decreased breath sounds bilateral. Crackles. Scattered wheezes and rhonchi
Cardiac: Regular rhythm, tachycardic. S1-S2.
GI: Soft, Nontender and Nondistended
Musculoskeletal: No Clubbing, no joint pain
Neuro: Lethargic, disoriented, minimally responsive
A/P:
Impression:
Shortness of breath
Mental status changes
Pain
Hypoxia
Sepsis
Acute DC
Dementia
PLAN:
Pain control
Oxygen
Morphine for pain and shortness of breath
Bowel regimen as needed
Ativan as needed
Morphine drip currently on step 3
Discussed with RN
Discussed with display carver
No need for DVT prophylaxis given comfort measures
CODE STATUS DNR/comfort care.
Anticipated Discharge: 24 - 48 hours
Subjective/Interval History
-
Date of Service: June 10, 2023
Patient with agonal breathing.
Objective Data
-
Vital Signs:
Vital Signs
Temp Pulse Resp BP Pulse Ox
100.1 F 128 20 93/57 90
06/10/23 07:52 06/10/23 07:52 06/10/23 07:52 06/10/23 07:52 06/10/23 07:52
I&O
06/09/23 06/10/23 06/11/23
06:59 06:59 06:59
Output Total 1350 / 1350
Balance -1350 / -1350
--- NOTE | 2023-06-10 11:07 | HOSPNOTE ---
Patient is actively dying having long periods of apnea and agonal breathing. Spoke with floor RN Cleo and she will continue medicating as needed. Patient is on a morphine drip and patient will continue being medicated according to protocol.
Called daughter Lillian with an update since there was no family in the room at the time of my visit. Patient will be seen daily by filler in and continues to be inpatient hospice appropriate.
--- NOTE | 2023-06-10 12:11 | W.PN.DEATH ---
Pronouncement of
-
Called to see patient to pronounce.
No spontaneous heart tones or respirations noted.
Patient not responsive to verbal stimuli.
Patient is pronounced .
Time of : 11:52
Date of : 06/10/23
Cause of : Sepsis and Acute ME.
Family Notified: Yes (Daughter.)
--- NOTE | 2023-06-10 12:12 | W.DCSUMMARY ---
Discharge Summary
Discharge Data
Date of Admission: 06/09/23
Date of Discharge: 06/10/23
-
Pending Results: No
Hospital Course
Patient 87-year-old male with history hypertension, hyperlipidemia, advanced dementia came into the hospital after a fall and had left hip fracture. He underwent repair of his left hip. He is course complicated with sepsis due to aspiration
pneumonia and also acute non-ST elevation myocardial infarction. Treatment was limited due to his postop status. Overall patient did poorly and family decided on comfort care measures. He was admitted to inpatient hospice care and he was placed
on comfort care. Patient today on 06/10/2023 at 1152 surrounded by his loved ones. May his soul rest in peace.
Discharge Plan
-
Patient Disposition:
Date/Time
Date/Time: 06/10/23 11:52
Discharge Date and Time
Discharge Date/Time: 06/10/23 11:52
Print Language: [place]
--- NOTE | 2023-06-10 12:21 | PTCARENOTE ---
pt passed at 1152, made aware. nurse to call [facility]. IV morphine gtt paused while family is still in the room.
== END 2023-06-10 11:52 | disposition expired | DRG 951 ==
LOC: 2 NORTH 13:55
PROVIDERS: ADMITTING PHYSICIAN Hospitalist
DX: Z51.5 Encounter for palliative care (principal); A41.9 Sepsis, unspecified organism; I21.4 Non-ST elevation (NSTEMI) myocardial infarction; J69.0 Pneumonitis due to inhalation of food and vomit; N17.9 Acute kidney failure, unspecified; F03.90 Unspecified dementia, unspecified severity, without behavioral disturbance, psychotic disturbance, mood disturbance, and anxiety